=== PATIENT | female | born 1935 | race Caucasian/White ===

== ENCOUNTER 2017-03-08 19:18 | Inpatient (IN) | payer MEDICARE, BC ==
[~2017-03-08] VITALS: Ht 152.4 cm; Wt 50.0 kg
[~2017-03-08 19:18] MED LIST: ALLEGRA-D 1212 HOUR PO; AMITRIPTYLIN10 MG OR; AMITRIPTYLIN25 MG OR; AMLODIPINE BESY10 MG PO; AMLODIPINE5 MG PO; ANTIVERT PO; ANTIVERT25 MG PO; ASPIRIN LOW DOS81 M2 PO; AUGMENTIN500TAB PO; BUDESONID2 IN; CALCIUM 500/VITAMIN PO; CEPHALEXIN500 M1 PO; CLONIDINE0.1 MG PO; FIORICET OR; FLEXERIL PO; FLUARIX QUADRIV1 IN1 IM; FLUARIX QUADRIV1 INJ IM; FLULAVAL IM; FOSAMAX70 MG OR; GNP OMEPRAZOLE20 MG PO; HYDRALAZINE25 MG PO; IBUPROFEN600 MG PO; IPRATROPIU0.5 MG/3 M NEB; ISRADIPINE5 MG OR; ISRADIPINE5 MG PO; LANOXIN0.25 MG PO; LASIX 20 MG20 MG/TAB PO; LEVAQUIN750 MG PO; LEVOTHYROXIN125 MCG PO; LIMBITROL1 TAB PO; LISINOPRIL40 MG PO; LOPRESSOR50 M1 PO; LYRICA75 MG OR; MAGNESIUM-OX400 MG PO; MAGNESIUM250 M1 PO; MECLIZINE HCL25 MG PO; MECLIZINE25 MG PO; METOCLOPRAM5 MG PO; METOCLOPRAMIDE H5 MG PO; METOPROL TAR50 MG PO; METOPROLOL TART50 MG PO; MINIPRESS2 MG OR; MINIPRESS2 MG PO; OMEPRAZOLE20 MG PO; PERCOCET 5/325M1 TAB OR; PHENERGAN SUP12.5 MG PO; PRAZOSIN HCL2 MG OR; PREDNISONE5 MG PO; PRILOSEC20 MG PO; PROAIR HFA IN; PROCHLORPER10 MG PO; PROTONIX20 MG OR; PROTONIX20 MG PO; RESTORIL15 MG PO; RHINOCORT NEB; ROBITUSSIN AC10 ML PO; SYNTHROID100 MCG PO; SYNTHROID125 MCG PO; SYNTHROID75 MCG OR; TAM75CAP OR; ULTRAM50 M1 PO; VICODIN HP1 TA1 PO; XANAX0.5 MG OR; ZOFRAN ODT8 MG PO; ZPAK OR; [UNRECOGNIZED DRUG - OTHER] OR
[2017-03-08 20:09] LABS: HEMATOCRIT 36.2 % (37.0-47.0); HEMOGLOBIN 11.8 g/dl (12.0-16.0); IMMATURE GRANULOCYTES 0.3 % (0.0-1.0); MEAN CELL VOLUME 90.7 fL CALC (80.0-100.0); MEAN CORPUSCULAR HGB 29.6 pG CALC (26.0-32.0); MEAN CORPUSCULAR HGB CONC 32.6 g/L CALC (32.0-36.0); NEUT# 3.66 thou/uL (2.00-7.15); RED BLOOD COUNT 3.99 mill/uL (4.20-5.60); RED CELL DISTRI WIDTH 13.5 % (11.5-15.5)
[2017-03-08] MEDS ORDERED: BL MAGNESIUM250 MG PO (20:19)
[2017-03-08] MEDS ORDERED: VITAMIN D-31000 UNI1 PO (20:23)
[2017-03-08 20:25] LABS: ALBUMIN 4.1 g/dL (3.2-5.0); ALKALINE PHOSPHATASE 56 u/l (38-126); ANION GAP 13 (6-22 (CALC)); BILIRUBIN, TOTAL 0.7 mg/dL (0.0-1.4); BUN 11 mg/dL (8-23); BUN/CREATININE RATIO 21 (12-20 (CALC)); CALCIUM 9.3 mg/dL (8.4-10.2); CARBON DIOXIDE 31 mmol/l (22-30); CHLORIDE 93 mmol/l (95-108); CREATININE 0.5 mg/dL (0.5-1.0); GFR > 60 ML/MIN (>=60 (CALC)); GFR FOR AFR.AMER. > 60 ML/MIN (>=60 (CALC)); GLUCOSE 110 mg/dL (82-115); SGOT/AST 30 u/l (9-36); SGPT/ALT 18 u/l (11-66); SODIUM 133 mmol/l (137-146); TOTAL PROTEIN 7.6 g/dL (6.3-8.2)
[2017-03-08 20:26] LABS: ACT PARTIAL THROMBO TIME 24.7 SECONDS (20.0-32.5); INTERNATIONAL NORMALIZED RATIO 0.9 RATIO (0.7-1.3); PROTHROMBIN TIME 9.9 SECONDS (9.0-12.5)
[2017-03-08 20:37] LABS: MYOGLOBIN 30 ng/mL (0 - 62)
[2017-03-08 22:28] LABS: URINE BILIRUBIN - DIPSTICK NEGATIVE (NEGATIVE); URINE BLOOD DIPSTICK TRACE-INTACT (NEGATIVE); URINE CLARITY CLEAR; URINE COLOR YELLOW; URINE GLUCOSE - DIPSTICK NEGATIVE (NEGATIVE); URINE KETONE NEGATIVE (NEGATIVE); URINE LEUK ESTERASE NEGATIVE (NEGATIVE); URINE NITRITE - DIPSTICK NEGATIVE (Negative); URINE PH 6.5 (4.5-8.0); URINE PROTEIN - DIPSTICK NEGATIVE (NEG-TRACE); URINE SPECIFIC GRAVITY 1.015; URINE UROBILINOGEN - DIPSTICK 0.2 E.U./dL (0.2)
[2017-03-08 22:42] VITALS: BP 203/100
[2017-03-08 23:40] VITALS: BP 161/82
[2017-03-09 04:50] VITALS: BP 106/48; BP 143/70
[2017-03-09 06:02] LABS: HEMATOCRIT 35.4 % (37.0-47.0); HEMOGLOBIN 11.7 g/dl (12.0-16.0); IMMATURE GRANULOCYTES 0.3 % (0.0-1.0); MEAN CELL VOLUME 88.9 fL CALC (80.0-100.0); MEAN CORPUSCULAR HGB 29.4 pG CALC (26.0-32.0); MEAN CORPUSCULAR HGB CONC 33.1 g/L CALC (32.0-36.0); NEUT# 3.54 thou/uL (2.00-7.15); RED BLOOD COUNT 3.98 mill/uL (4.20-5.60); RED CELL DISTRI WIDTH 13.2 % (11.5-15.5)
[2017-03-09 06:20] LABS: ANION GAP 13 (6-22 (CALC)); BUN 9 mg/dL (8-23); BUN/CREATININE RATIO 17 (12-20 (CALC)); CALCIUM 9.4 mg/dL (8.4-10.2); CALCULATED LDLCHOLESTEROL 97 mg/dL (62-129 (CALC)); CARBON DIOXIDE 29 mmol/l (22-30); CHLORIDE 95 mmol/l (95-108); CREATININE 0.5 mg/dL (0.5-1.0); GFR > 60 ML/MIN (>=60 (CALC)); GFR FOR AFR.AMER. > 60 ML/MIN (>=60 (CALC)); GLUCOSE 83 mg/dL (82-115); HDL CHOLESTEROL 58 mg/dL (>=40); POTASSIUM 3.7 mmol/l (3.5-5.1); SODIUM 133 mmol/l (137-146); TOTAL CHOLESTEROL 171 mg/dl (0-199); TOTAL TRIGLYCERIDES 80 mg/dl (30-149); VLDL CHOLESTROL 16 mg/dl (0-48 (CALC))
[2017-03-09 08:00] VITALS: BP 142/74
[2017-03-09 11:06] VITALS: BP 151/80
[2017-03-09 15:54] VITALS: BP 136/79
[2017-03-09 18:55] VITALS: BP 135/87
[2017-03-09 23:32] VITALS: BP 142/80
[2017-03-10 03:59] VITALS: BP 133/80
[2017-03-10 08:09] VITALS: BP 134/64
[2017-03-10 10:50] VITALS: BP 119/73
[2017-03-10] MEDS ORDERED: ASPIRIN EC325 MG PO (10:50)
[2017-03-10] MEDS ORDERED: ATORVASTATIN CA40 MG PO (10:50)
== END 2017-03-10 13:42 | DRG 69 ==
LOC: ENPENDDIS → ED 19:18 → ED-I 22:09 → ED 22:12 → MS2 22:13 → UNDODEPER 03-09 22:35 → MS2 03-10 13:42
PROVIDERS: Emergency Medicine; ADMIT Internal Medicine; ATTEND Internal Medicine
DX: G45.9 Transient cerebral ischemic attack, unspecified (principal); J44.9 Chronic obstructive pulmonary disease, unspecified; D86.9 Sarcoidosis, unspecified; I10 Essential (primary) hypertension; R06.1 Stridor; E03.9 Hypothyroidism, unspecified; I25.10 Atherosclerotic heart disease of native coronary artery without angina pectoris
CPT/HCPCS: A9579; J1650

== ENCOUNTER 2019-01-16 22:18 | Emergency (ER) | payer MEDICARE, BC ==
[~2019-01-16] VITALS: Ht 152.4 cm; Wt 45.0 kg
[~2019-01-16 22:18] MED LIST changes: +ASPIRIN EC325 MG PO; +ATORVASTATIN CA40 MG PO; +BL MAGNESIUM250 MG PO; +VITAMIN D-31000 UNI1 PO
[2019-01-16 23:19] LABS: HEMATOCRIT 37.5 % (37.0-47.0); IMMATURE GRANULOCYTES 0.3 % (0.0-5.0); MEAN CELL VOLUME 91.7 fL CALC (80.0-100.0); MEAN CORPUSCULAR HGB 29.3 pG CALC (26.0-32.0); NEUT# 13.75 thou/uL (2.00-7.15); RED BLOOD COUNT 4.09 mill/uL (4.20-5.60)
[2019-01-16 23:29] LABS: ALBUMIN 4.2 g/dL (3.2-5.0); ALKALINE PHOSPHATASE 77 u/l (38-126); AMYLASE 52 u/l (30-110); ANION GAP 13 (6-22 (CALC)); BILIRUBIN, TOTAL 0.6 mg/dL (0.0-1.4); BUN 18 mg/dL (8-23); BUN/CREATININE RATIO 39 (12-20 (CALC)); CARBON DIOXIDE 30 mmol/l (22-30); CHLORIDE 96 mmol/l (95-108); CREATININE 0.5 mg/dL (0.5-1.0); GFR > 60 ML/MIN (>=60 (CALC)); GFR FOR AFR.AMER. > 60 ML/MIN (>=60 (CALC)); LIPASE 96 u/l (23-300); POTASSIUM 3.9 mmol/l (3.5-5.1); SGOT/AST 30 u/l (9-36); SODIUM 134 mmol/l (137-146); TOTAL PROTEIN 6.6 g/dL (6.3-8.2)
[2019-01-16 23:40] LABS: MYOGLOBIN 34 ng/mL (0 - 62)
[2019-01-17] MEDS ORDERED: ASPIRIN 81 LOW81 MG PO (00:06)
[2019-01-17] MEDS ORDERED: B-121000 MC1 PO (00:06)
[2019-01-17] MEDS ORDERED: CIPROFLOXACN500 MG PO (02:05)
[2019-01-17] MEDS ORDERED: ZOFRAN ODT4 MG PO (02:05)
[2019-01-17 04:05] VITALS: BP 131/58
== END 2019-01-17 04:10 | disposition home or self-care (01) ==
LOC: ED 22:18
PROVIDERS: Emergency Medicine
DX: K52.9 Noninfective gastroenteritis and colitis, unspecified (principal); R11.2 Nausea with vomiting, unspecified; R19.7 Diarrhea, unspecified; K44.9 Diaphragmatic hernia without obstruction or gangrene

== ENCOUNTER 2020-07-29 12:38 | Observation (INO) | payer MEDICARE, BC ==
[~2020-07-29] VITALS: Ht 152.4 cm; Wt 48.6 kg
[~2020-07-29 12:38] MED LIST changes: +ASPIRIN 81 LOW81 MG PO; +B-121000 MC1 PO; +CIPROFLOXACN500 MG PO; +ZOFRAN ODT4 MG PO
--- NOTE | 2020-07-29 12:41 | NUR ---
PATIENT TO ROOM VIA EMS AND PHYSICIAN AT BEDSIDE FOR EVAL
--- NOTE | 2020-07-29 13:10 | NUR ---
PT CONTIUNES TO MAKE INTERMITTENT STRIDOR SOUNDS WITH RESPIRATIONS. PT STATES IT IS "BECAUSE I HAD SARCOIDOSIS YEARS AGO". VERIFIED WITH RETIREMENT STAFF THAT THIS RESPIRATIONS IS PTS BASELINE. PT DOESNT APPEAR IN ANY DISTRESS. PT O2 SAT 98% ON O2@2LPM VIA NC. PT O2 DEPENDENT AT RETIREMENT
[2020-07-29] MEDS ORDERED: LIPITOR20 MG PO (13:39)
[2020-07-29] MEDS ORDERED: BROVANA15 MCG/2 M IN (13:40)
[2020-07-29] MEDS ORDERED: OMEPRAZOLE20 MG PO (13:42)
[2020-07-29] MEDS ORDERED: PRESERVISION PO (13:43)
[2020-07-29] MEDS ORDERED: SYSTANE OU (13:43)
[2020-07-29 13:58] LABS: MEAN CELL VOLUME 94.5 fL CALC (80.0-100.0); MEAN CORPUSCULAR HGB 28.9 pG CALC (26.0-32.0); MEAN CORPUSCULAR HGB CONC 30.6 g/dL CAL (32.0-36.0); NEUT# 3.39 thou/uL (2.00-7.15); RED BLOOD COUNT 3.25 mill/uL (4.20-5.60); RED CELL DISTRI WIDTH 13.3 % (11.5-15.5)
[2020-07-29 13:59] LABS: HEMATOCRIT 30.7 % (37.0-47.0); HEMOGLOBIN 9.4 g/dl (12.0-16.0)
--- NOTE | 2020-07-29 14:10 | NUR ---
ATTEMPTED ORTHOSTATIC VS, PT COULD NOT TOLERATE COMING TO STANDING POSITION,EDP AWARE AND MEDS ORDERED FOR LB PAIN
[2020-07-29 14:18] LABS: ANION GAP 11 (6-22 (CALC)); BUN 15 mg/dL (8-23); BUN/CREATININE RATIO 38 (12-20 (CALC)); CARBON DIOXIDE 33 mmol/l (22-30); CHLORIDE 87 mmol/l (95-108); CREATININE 0.4 mg/dL (0.5-1.0); GFR > 60 ML/MIN (>=60 (CALC)); GFR FOR AFR.AMER. > 60 ML/MIN (>=60 (CALC)); POTASSIUM 3.8 mmol/l (3.5-5.1)
[2020-07-29 14:19] LABS: SODIUM 127 mmol/l (137-146)
--- NOTE | 2020-07-29 15:00 | NUR ---
ADMINISTERED MEDS FOR 6/10 LB PAIN. INITIATED IVF
--- NOTE | 2020-07-29 15:35 | NUR ---
REPORT REC FROM ANAMARIA DEL ROSARIO
--- NOTE | 2020-07-29 15:40 | NUR ---
CALLED REPORT TO MIGUEL ÁNGEL HERNANDEZ
--- NOTE | 2020-07-29 16:00 | NUR ---
PT TRANSPORTED TO [place] VIA STRETCHER ALERT AND CONVERSIVE IN NO OVERT DISTRESS. PT STATES "THAT PAIN MEDICINE DID HELP". LOW BACK PAIN 02/20
--- NOTE | 2020-07-29 16:02 | NUR ---
PT ARRVIED VIA STRETCHER WITH O2 VIA NC @ 2L ACCOMPANIED BY ANAMARIA DEL ROSARIO. NO DISTRESS NOTED. SON AT BEDSIDE. AUDIBLE STRIDOR HEARD, PER PT AND FAMILY MEMBER THIS IS CHRONIC DUE TO HER MEDICAL CONDITION OF SARCOIDOSIS, LUNGS CLEAR OTHERWISE. PT O2 DEPENDENT AT THE [place]. PT A&O X3. 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 PT C/O OF LOWER BACK PAIN 06/22, STATES MORPHINE HELPED HER ALLEVIATE SOME OF THE PAIN BUT FOR ONLY A SHORT AMOUNT OF TIME. BP TO BE REASSESSED DUE TO IT BEING ELEVATED. ORIENTED PT TO ROOM. CHIQUI ROWAN OFFERED BUT DECLINED. ASSESSMENT COMPLETED. DISCUSSED POC WIH BOTH PT AND SON, BOTH VERBALIZED UNDERSTANDING. CALL LIGHT IN REACH. CONTINUE TO MONITOR.
[2020-07-29 16:09] VITALS: BP 168/69
--- NOTE | 2020-07-29 16:12 | NUR ---
CALLED REPORT TO NICOLAS AT [facility]
[2020-07-29 16:25] VITALS: BP 172/82
--- NOTE | 2020-07-29 18:15 | NUR ---
PT STATES PAIN IS A LOT BETTER AFTER ADMINISTRATION OF MORPHINE RATES PAIN IS TRENDING DOWNWARD TO A 6/10
[2020-07-29 18:30] VITALS: BP 149/77
--- NOTE | 2020-07-29 20:01 | NUR ---
ASSESSMENT AND VITALS COMPLETED AT THIS TIME. RESPIRATIONS ARE SHALLOW, PT HAS A LOUD HIGH PITCH WHILE BREATHING. NO SIGNS OF DISTRESS, O2 SAT 100% ON 2L NC. HEART RHYTHM IS NORMAL WITH TELE IN PLACE. BOWEL SOUNDS ARE ACTIVE IN ALL QUADRANTS, LAST REPORTED BM 07/29/20. RADIAL AND PEDAL PULSES ARE STRONG WITH NORMAL CAPILLARY REFILL. SKIN IS INTACT. PT IS USING THE BSC WITH 1 ASSIST. PT DENIES ANY PAIN OR ADDITIONAL NEEDS AT THIS TIME. ALL SAFETY PRECAUTIONS ARE IN PLACE WITH CALL LIGHT IN REACH. WILL CONTINUE TO MONITOR.
[2020-07-29 21:36] LABS: URINE BILIRUBIN - DIPSTICK NEGATIVE (NEGATIVE); URINE BLOOD DIPSTICK SMALL (NEGATIVE); URINE COLOR YELLOW; URINE GLUCOSE - DIPSTICK NEGATIVE (NEGATIVE); URINE KETONE 40 mg/dL (NEGATIVE); URINE LEUK ESTERASE NEGATIVE (NEGATIVE); URINE NITRITE - DIPSTICK NEGATIVE (Negative); URINE PH 7.5 (4.5-8.0); URINE PROTEIN - DIPSTICK 100 mg/dL (NEG-TRACE); URINE UROBILINOGEN - DIPSTICK 0.2 E.U./dL (0.2)
[2020-07-29 21:50] LABS: URINE SQUAMOUS EPITHELIAL CELL FEW EPI/hpf (0-FEW)
--- NOTE | 2020-07-29 22:03 | NUR ---
PT HOME MED "BROVANA" IS NOT AVAILABLE TO BE GIVEN FOR 2100 DOSE. DAY NURSE AND PT REPORTS THAT HER SON IS GOING TO ATTEMPT TO BRING IT IN TOMORROW FOR HER. PHYSICIAN NOTIFIED THAT MEDICATION NOT AVAILABLE FOR ADMINISTRATION. WILL AWAIT ANY NEW ORDERS.
--- NOTE | 2020-07-29 22:30 | NUR ---
PT FOUND BY VESSEL ENGINEER REPORTED THAT PT WAS SEEN BLEEDING FROM ARM, UPON MY ENTERING ROOM, VESSEL ENGINEER WAS VISUALIZED HOLDING PT ARM WITH TOWEL AND BLOOD ON BLANKETS AND GOWN. IV CANULA INTACT AND ON FLOOR, PT DENIES KNOWING WHAT HAPPENED. PT CLEANED OF BLOOD ON ARM, NEW GOWN AND BEDDING PROVIDED. ARM WRAPPED WITH GAUZE AND KOBAN. [facility].
[2020-07-29 23:40] VITALS: BP 156/82
[2020-07-30] VITALS (9 sets, daily range): BP systolic 150–178; BP diastolic 65–90
--- NOTE | 2020-07-30 00:01 | NUR ---
PT CONTINUES BEFORE, RESTING IN BED IN NO ACUTE DISTRESS. IV INFUSING; IV SITE IN HEALTHY WITH NO REDDNESS OR SWELLING. WILL CONTINUE TO OBSERVE.
[2020-07-30 05:15] LABS: HEMATOCRIT 27.7 % (37.0-47.0); HEMOGLOBIN 8.5 g/dl (12.0-16.0); IMMATURE GRANULOCYTES 0.7 % (0.0-5.0); MEAN CELL VOLUME 95.2 fL CALC (80.0-100.0); MEAN CORPUSCULAR HGB 29.2 pG CALC (26.0-32.0); MEAN CORPUSCULAR HGB CONC 30.7 g/dL CAL (32.0-36.0); NEUT# 2.77 thou/uL (2.00-7.15); RED BLOOD COUNT 2.91 mill/uL (4.20-5.60); RED CELL DISTRI WIDTH 13.4 % (11.5-15.5)
--- NOTE | 2020-07-30 05:25 | NUR ---
ORTHOSTATIC BP'S OBTAINED: 169/79 SUPPINE, 155/77 SITTING, 158/65 STANDING. PT DENIED DIZZINESS OR SOB. PT APPEARED TO TOLERATE WELL. PT MEDICATED ORDERS PROVIDE AND IVF REPLENISHED AT THIS TIME.
[2020-07-30 05:26] LABS: ALKALINE PHOSPHATASE 55 u/l (38-126); ANION GAP 8 (6-22 (CALC)); BILIRUBIN, TOTAL 0.6 mg/dL (0.0-1.4); BUN 12 mg/dL (8-23); BUN/CREATININE RATIO 36 (12-20 (CALC)); CARBON DIOXIDE 33 mmol/l (22-30); CHLORIDE 91 mmol/l (95-108); CREATININE 0.3 mg/dL (0.5-1.0); GFR > 60 ML/MIN (>=60 (CALC)); GFR FOR AFR.AMER. > 60 ML/MIN (>=60 (CALC)); POTASSIUM 3.8 mmol/l (3.5-5.1); SGOT/AST 23 u/l (9-36); SODIUM 127 mmol/l (137-146); TOTAL PROTEIN 5.3 g/dL (6.3-8.2)
[2020-07-30 05:27] LABS: ALBUMIN 3.1 g/dL (3.2-5.0)
--- NOTE | 2020-07-30 08:20 | NUR ---
DR LUQUE AT BEDSIDE DISCUSSING POC
--- NOTE | 2020-07-30 08:47 | NUR ---
PULMICORT NEB TX NOT GIVEN DUE TO PENDING LAB RESULTS.
--- NOTE | 2020-07-30 09:11 | NUR ---
PT SITTING IN BED. A&O X3. GRANDAUGHTER AT BEDSIDE. NO DISTRESS NOTED. O2 VIA NC @ 2L IN PLACE. PT REPORTS PAIN TO BE MINIMAL AT THIS TIME. PT ABLE TO USE BEDSIDE COMMODE X1 ASSIST. ADJUSTED PILLOWS FOR LOWER BACK PAIN COMFORT. NO OTHER NEEDS AT THIS TIME. ASSESSMENT COMPLETED. DISCUSSED POC. CALL LIGHT IN REACH. CONTINUE TO MONITOR.
--- NOTE | 2020-07-30 10:10 | NUR ---
PT C/O OF PAIN 04/22. LORTAB GIVEN. WILL REASSESS.
--- NOTE | 2020-07-30 10:30 | NUR ---
PT C/O OF SLIGHT FINGER TINGLING KATHLEEN BANDAGE REMOVE WHERE IV SITE IS IN PLACE. PT REPORTS SLIGHT RELIEF. EXPRESSES CONCERN OVER RING FINGER ON RT HAND BEING BRUISED AT FINGER TIP. ERIKA HENRY NOTIFIED, AT BEDSIDE EXAMINING FINGER. ENCOURAGED PT TO CALL IF TINGLING SENSATION CONTINUES TO OCCUR. PT VERBALIZED UNDERSTANDING. CALL LIGHT IN REACH. CONTINUE TO MONITOR.
--- NOTE | 2020-07-30 11:34 | NUR ---
SON AT BEDSIDE. PT SLEEPING. AWAKNED TO GIVE 1X DOSE OF CLONIDINE. PT UNABLE TO RECOGNIZE PTS SON. PT HAVING GARBLED/SLURRED SPEECH BUT ABLE TO FOLLOW COMMANDS. SURJIT HENRY NOTIFIED. AT BEDSIDE EVALUATING PT, AT TIME OF EVALUATION, PT SPEAKING CLEAR AND WAS ABLE TO RECOGNIZE SON.
--- NOTE | 2020-07-30 12:40 | NUR ---
PT SLEEPING IN BED. NO DISTRESS NOTED. CONTINUE TO MONITOR.
--- NOTE | 2020-07-30 12:45 | NUR ---
PT NOTICED TO BE HAVING ANOTHER EPISODE OF CHANGE IN SPEECH. ELIZABETH HENRY NOTIFIED. Rehan MADISON AT BEDSIDE EVAULATING PT. PT ABLE TO FOLLOW COMMANDS. SPEECH CLEAR UPON EVALUATION BY ASPHALT PAVER OPERATOR. CONTINUE TO MONITOR.
--- NOTE | 2020-07-30 15:20 | NUR ---
RUSSELL GROUND SUPPORT EQUIPMENT FITTER NOTIFIED OF SIMILAR SYMPTOMS THAT WERE OBSERVED EARLIER. RUSSELL AT BEDSIDE RE-EVALUATING PT. CONTINUE TO MONITOR PT.
--- NOTE | 2020-07-30 17:10 | NUR ---
PT ASSESSED BY THIS CERAMIC WORKER AND MOE RN. PT CONTINUED TO HAVE INTERMITTENT EPISODES OF SLIGHT GARBLED/SLURRED SPEECH, PT UNABLE TO CORRECTLY EXPRESS WHAT SHE NEEDS. DR SAEED NOTIFIED. GREG SAEED CONTINUE TO MONITOR.
--- NOTE | 2020-07-30 19:10 | NUR ---
REPORT TAKEN FROM COLLETTE DEL ROSARIO. ASSESSMENT AND VITALS COMPLETED AT THIS TIME. RESPIRATIONS ARE SHALLOW, PT HAS A LOUD HIGH PITCH WHILE BREATHING. NO SIGNS OF DISTRESS, O2 SAT 100% ON 2L NC. HEART RHYTHM IS NORMAL WITH TELE IN PLACE. BOWEL SOUNDS ARE ACTIVE IN ALL QUADRANTS. RADIAL AND PEDAL PULSES ARE STRONG WITH NORMAL CAPILLARY REFILL. SKIN IS INTACT. PT IS USING THE BSC WITH 1 ASSIST. PT DENIES ANY PAIN OR ADDITIONAL NEEDS AT THIS TIME. ALL SAFETY PRECAUTIONS ARE IN PLACE WITH CALL LIGHT IN REACH. WILL CONTINUE TO MONITOR.
--- NOTE | 2020-07-30 19:25 | NUR ---
[facility] LR CALLED AND ASKED ABOUT THE PTS NEURO BASELINE. NURSES REPORT THAT PT IS NORMALLY A&O WITH NO APPARENT CHANGE IN SPEECH. REPORT GIVEN TO FANG DEL ROSARIO. UPDATED ON PTS CONDITION.
--- NOTE | 2020-07-30 19:27 | NUR ---
DAY NURSE WITNESSED CALLING ASSISTED FOR BASELINE INFORMATION ON PT. PER DAY NURSE, PT BASELINE IS LOC W/CLEAR SPEECH.
--- NOTE | 2020-07-30 19:47 | NUR ---
PT C/O 04/22 PAIN. LORTAB GIVEN. WILL REASSESS.
--- NOTE | 2020-07-30 19:47 | NUR ---
PHYSICIAN NOTIFIED OF GARBLED UNINTELLIGIBLE SPEECH. ORDERS FOR ERNESTO ASSESSMENT AND TO BE NOTIFIED OF SCORE RESULTS OF 7. PHYSICIAN NOTIFIED.
--- NOTE | 2020-07-30 20:10 | NUR ---
STROKE ALERT CALLED PER PHYSICIAN ORDERS
--- NOTE | 2020-07-30 21:10 | NUR ---
PT TAKEN TO CT FOR SCAN W/OUT CONTRAST. NEUROTELE PHYSICIAN ONLINE TO ASSESS PT AT THAT TIME AND CT SCAN REVIEWED/DR. GASTELUM ASSESSMENT COMPLETED @2049. ORDERS FOR PT TO REMAIN ON ASPIRIN 81MG ORDERS ALREADY PROVIDE AND FOR FOLLOW-UP MRI.
--- NOTE | 2020-07-30 23:13 | NUR ---
PER GIANNI FROM RESPIRATORY REPORT THAT SCHEDULED PULMICORT HAS BEEN HELD UNTIL PTS PENDING COVID RESULTS ARE NEGATIVE.
[2020-07-31] VITALS: BP 139/65
--- NOTE | 2020-07-31 00:39 | NUR ---
ASSISTED PT UP TO BSC AND BACK TO BED. ASSESSMENT COMPLETED, NEURO'S ARE INTACT, EXCEPT PT HAVING DIFFICULTY WITH SENTENCES. SHE CAN ANSWER NO AND YES APPROPRIATLEY, BUT WHEN ATTEMPTING TO TELL ME SHE NEEDED TO GET UP TO BSC SHE APPEARED TO SPEAK IN JUMBLED UNINTELLIGIBLE WORDS. I HAD TO GUES AT HER MOTIONS TO DETECT WHAT HER NEEDS WERE, BUT WHEN ASKED IF SHE IS COLD SHE REPLIES, "YES" WHEN ASKED IF SHE IS IN PAIN SHE REPLIES "NO." WILL CONTINUE TO MONITOR.
--- NOTE | 2020-07-31 01:50 | NUR ---
PT SLEEPING, NO S/O DISTRESS NOTED AT THIS TIME. CALL LIGHT AT SIDE.
[2020-07-31 04:00] VITALS: BP 134/68
[2020-07-31 05:30] LABS: HEMATOCRIT 24.7 % (37.0-47.0); HEMOGLOBIN 7.7 g/dl (12.0-16.0); MEAN CELL VOLUME 94.3 fL CALC (80.0-100.0); MEAN CORPUSCULAR HGB 29.4 pG CALC (26.0-32.0); MEAN CORPUSCULAR HGB CONC 31.2 g/dL CAL (32.0-36.0); RED BLOOD COUNT 2.62 mill/uL (4.20-5.60); RED CELL DISTRI WIDTH 13.6 % (11.5-15.5)
--- NOTE | 2020-07-31 06:07 | NUR ---
PT MEDICATED ORDERS PROVIDE BY MIGUEL ÁNGEL PLEITEZ. SWITCHBOARD OPERATOR SUPERVISOR IN WITH PT ALSO AT THIS TIME. PT COMMUNICATING CLEARLY WITH SEVERAL WORD SENTENCES. NO S/O DISTRESS NOTED AT THIS TIME.
[2020-07-31 06:23] LABS: ALBUMIN 2.5 g/dL (3.2-5.0); ALKALINE PHOSPHATASE 48 u/l (38-126); ANION GAP 10 (6-22 (CALC)); BILIRUBIN, TOTAL 0.5 mg/dL (0.0-1.4); BUN 12 mg/dL (8-23); BUN/CREATININE RATIO 31 (12-20 (CALC)); CHLORIDE 96 mmol/l (95-108); CREATININE 0.4 mg/dL (0.5-1.0); GFR > 60 ML/MIN (>=60 (CALC)); GFR FOR AFR.AMER. > 60 ML/MIN (>=60 (CALC)); POTASSIUM 3.2 mmol/l (3.5-5.1); SGOT/AST 19 u/l (9-36); SODIUM 129 mmol/l (137-146); TOTAL PROTEIN 4.5 g/dL (6.3-8.2)
[2020-07-31 06:24] LABS: CARBON DIOXIDE 26 mmol/l (22-30)
[2020-07-31 08:00] VITALS: BP 169/69
--- NOTE | 2020-07-31 09:00 | NUR ---
PT SEEN AWAKE, ALERT, ORIENTED X 3 AT THIS TIME. BREATHING IS LOUD PER SARCOIDOSIS, BUT LUNG SOUNDS ARE CLEAR, USING 3 LPM NC. PT NAUSEATED, WAS PROVIDED ZOFRAN FOR SAME. PT TAKEN TO MRI FOR HEAD SCAN, COULD NOT BE DONE PER VOMITING. PT PROVIDED COMPAZINE FOR NAUSEA, WAS LATER ABLE TO TAKE HER MORNING MEDS WITHOUT NAUSEA. PT AWARE OF RESCHEDULED MRI FOR THIS AFTERNOON.
[2020-07-31 12:00] VITALS: BP 128/63
--- NOTE | 2020-07-31 13:20 | NUR ---
PT SEEN AT REST IN THE BED, EYES CLOSED, SNORING HEARD. PT TO HAVE MRI SOON.
--- NOTE | 2020-07-31 16:39 | NUR ---
PT CONTNUES TO DOZE OFF AND ON TODAY. PT STATES THAT HER NAUSEA FROM EARLIER HAS NEARLY GONE. NO DISTRESS, NO COMPLAINTS HEARD.
[2020-07-31 16:46] VITALS: BP 164/75
[2020-07-31 18:30] VITALS: BP 148/77
--- NOTE | 2020-07-31 20:00 | NUR ---
PT RESTING IN BED WITH EYES CLOSED EASILY AROUSED. RESPIRATIONS EVEN AND UNLABORED. O2 @ 2L VIA NC. PEDAL PULSES ARE STRONG. PT DENIES ANY PAIN OR DISCOMFORT AT THIS TIME. SAFETY PRECAUTIONS IN PLACE.WILL CONTINUE TO MONITOR.
[2020-08-01] VITALS: BP 154/82
--- NOTE | 2020-08-01 00:10 | NUR ---
PT RESTING IN BED WITH EYES CLOSED. NO S/S OF DISTRESS AT THIS TIME. SAFETY PRECAUTIONS IN PLACE. WILL CONTINUE TO MONITOR.
[2020-08-01 03:30] VITALS: BP 166/75
[2020-08-01 04:50] LABS: ALBUMIN 2.8 g/dL (3.2-5.0); ALKALINE PHOSPHATASE 50 u/l (38-126); ANION GAP 8 (6-22 (CALC)); BILIRUBIN, TOTAL 0.6 mg/dL (0.0-1.4); BUN 15 mg/dL (8-23); BUN/CREATININE RATIO 39 (12-20 (CALC)); CARBON DIOXIDE 29 mmol/l (22-30); CHLORIDE 97 mmol/l (95-108); CREATININE 0.4 mg/dL (0.5-1.0); GFR > 60 ML/MIN (>=60 (CALC)); GFR FOR AFR.AMER. > 60 ML/MIN (>=60 (CALC)); POTASSIUM 3.7 mmol/l (3.5-5.1); SGOT/AST 22 u/l (9-36); SODIUM 130 mmol/l (137-146); TOTAL PROTEIN 4.9 g/dL (6.3-8.2)
[2020-08-01 05:11] LABS: HEMATOCRIT 25.6 % (37.0-47.0); HEMOGLOBIN 7.8 g/dl (12.0-16.0); MEAN CELL VOLUME 94.5 fL CALC (80.0-100.0); MEAN CORPUSCULAR HGB 28.8 pG CALC (26.0-32.0); MEAN CORPUSCULAR HGB CONC 30.5 g/dL CAL (32.0-36.0); RED BLOOD COUNT 2.71 mill/uL (4.20-5.60)
--- NOTE | 2020-08-01 07:08 | NUR ---
REPORT REC FROM ALONSO DEL ROSARIO. PT SLEEPING AT THIS TIME. RESP EVEN AND UNLABORED. O2 VIA NC IN PLACE. CONTINUE TO MONIOR
--- NOTE | 2020-08-01 07:49 | NUR ---
ASSISTED THE PT TO BSC. PT STEADY DURING AMBULATION. PT REPORTS NOT BEING ABLE TO SLEEP LAST NIGHT. ENCOURAGED PT TO EAT BREAKFAST, PT VERBALIZED UNDERSTANDING.
[2020-08-01 08:06] VITALS: BP 140/70
--- NOTE | 2020-08-01 08:06 | NUR ---
PT SITTING IN BED. A&O X3. NO DISTRESS NOTED. PT MORE AWAKE, WITH CLEAR SPEECH THIS MORNING. PT ABLE TO TAKE PO MEDICATIONS WITH NO DIFFICULTY. PT DENIES ANY PAIN AT THIS TIME. ASSESSMENT COMPLETED. DISCUSSED POC. CALL LORRI IN REACH. CONTINUE TO MONITOR.
[2020-08-01 10:45] VITALS: BP 152/86
[2020-08-01] MEDS ORDERED: SENNA-PLUS1 TAB PO (12:35)
[2020-08-01] MEDS ORDERED: TYLENOL500 MG PO (12:36)
--- NOTE | 2020-08-01 13:40 | NUR ---
D/C INSTRUCTIONS GIVEN TO PT. PT VERBALIZED UNDERSTANDING. IV INTACT UPON REMOVAL
--- NOTE | 2020-08-01 14:00 | NUR ---
Discharge instructions given. Patient verbalizes understanding of same. Discharged in stable condition via wheelchair to [facility] with facility transportation. All belongings sent with pt.
== END 2020-08-01 14:00 ==
LOC: ED 12:38 → ED-I 13:50 → ED 15:02 → MS2 15:03
PROVIDERS: Family Medicine; Nurse Practitioner; Nurse Practitioner Family; ADMIT Internal Medicine; ATTEND Internal Medicine
DX: S32.010A Wedge compression fracture of first lumbar vertebra, initial encounter for closed fracture (principal); S32.030A Wedge compression fracture of third lumbar vertebra, initial encounter for closed fracture; E87.1 Hypo-osmolality and hyponatremia; R41.0 Disorientation, unspecified; R47.81 Slurred speech; R53.1 Weakness; J44.9 Chronic obstructive pulmonary disease, unspecified; I10 Essential (primary) hypertension; F03.90 Unspecified dementia, unspecified severity, without behavioral disturbance, psychotic disturbance, mood disturbance, and anxiety; I42.9 Cardiomyopathy, unspecified; D64.9 Anemia, unspecified; J38.00 Paralysis of vocal cords and larynx, unspecified; W18.30XA Fall on same level, unspecified, initial encounter; Y92.099 Unspecified place in other non-institutional residence as the place of occurrence of the external cause; Z96.641 Presence of right artificial hip joint; Z20.828 Contact with and (suspected) exposure to other viral communicable diseases
CPT/HCPCS: A9579; G0378; J1650

== ENCOUNTER 2020-12-25 11:07 | Emergency (ER) | payer MEDICARE, BC ==
[~2020-12-25] VITALS: Ht 152.4 cm; Wt 49.0 kg
[~2020-12-25 11:07] MED LIST changes: +BROVANA15 MCG/2 M IN; +LIPITOR20 MG PO; +PRESERVISION PO; +SENNA-PLUS1 TAB PO; +SYSTANE OU; +TYLENOL500 MG PO
[2020-12-25] MEDS ORDERED: LIDOCAINE PATCH 55 % TD (11:49)
[2020-12-25 12:22] LABS: HEMATOCRIT 30.7 % (37.0-47.0); HEMOGLOBIN 9.7 g/dl (12.0-16.0); IMMATURE GRANULOCYTES 0.5 % (0.0-5.0); MEAN CORPUSCULAR HGB 28.4 pG CALC (26.0-32.0); MEAN CORPUSCULAR HGB CONC 31.6 g/dL CAL (32.0-36.0); NEUT# 3.67 thou/uL (2.00-7.15); RED BLOOD COUNT 3.41 mill/uL (4.20-5.60); RED CELL DISTRI WIDTH 13.2 % (11.5-15.5)
[2020-12-25 12:44] LABS: URINE BILIRUBIN - DIPSTICK NEGATIVE (NEGATIVE); URINE BLOOD DIPSTICK NEGATIVE (NEGATIVE); URINE COLOR YELLOW; URINE GLUCOSE - DIPSTICK NEGATIVE (NEGATIVE); URINE KETONE >=80 mg/dL (NEGATIVE); URINE LEUK ESTERASE NEGATIVE (NEGATIVE); URINE NITRITE - DIPSTICK NEGATIVE (Negative); URINE PROTEIN - DIPSTICK 100 mg/dL (NEG-TRACE); URINE SPECIFIC GRAVITY 1.025; URINE UROBILINOGEN - DIPSTICK 0.2 E.U./dL (0.2)
[2020-12-25 12:45] LABS: ALKALINE PHOSPHATASE 70 u/l (38-126); BILIRUBIN, TOTAL 0.5 mg/dL (0.0-1.4); BUN 24 mg/dL (8-23); BUN/CREATININE RATIO 54 (12-20 (CALC)); CARBON DIOXIDE 32 mmol/l (22-30); CHLORIDE 87 mmol/l (95-108); CREATININE 0.4 mg/dL (0.5-1.0); GFR > 60 ML/MIN (>=60 (CALC)); GFR FOR AFR.AMER. > 60 ML/MIN (>=60 (CALC)); LIPASE 82 u/l (23-300); MAGNESIUM 1.9 mg/dL (1.6-2.3); SGOT/AST 22 u/l (9-36); SODIUM 126 mmol/l (137-146)
[2020-12-25 12:51] LABS: URINE EPITHELIAL CELLS MODERATE EPI/hpf (0-FEW); URINE MUCUS MODERATE hpf (NONE-FEW)
[2020-12-25 12:54] LABS: ALBUMIN 3.7 g/dL (3.2-5.0); ANION GAP 10 (6-22 (CALC)); POTASSIUM 2.9 mmol/l (3.5-5.1); TOTAL PROTEIN 6.3 g/dL (6.3-8.2)
[2020-12-25 14:27] VITALS: BP 197/94
== END 2020-12-25 14:28 | disposition short-term general hospital (02) ==
LOC: ED 11:07
DX: I62.9 Nontraumatic intracranial hemorrhage, unspecified (principal); E87.1 Hypo-osmolality and hyponatremia; E87.6 Hypokalemia; I10 Essential (primary) hypertension; J44.9 Chronic obstructive pulmonary disease, unspecified; I42.9 Cardiomyopathy, unspecified; F03.90 Unspecified dementia, unspecified severity, without behavioral disturbance, psychotic disturbance, mood disturbance, and anxiety; K21.9 Gastro-esophageal reflux disease without esophagitis; Z20.822 Contact with and (suspected) exposure to COVID-19

== ENCOUNTER 2021-03-09 19:03 | Emergency (ER) | payer MEDICARE, BC ==
[~2021-03-09 19:03] MED LIST changes: +AMLODIPINE BESYL5 MG PO; +LIDOCAINE PATCH 55 % TD; +LISINOPRIL20 MG PO; +MEDDOSEPAK PO; +ZITHROMAX Z-PA250 MG PO
== END 2021-03-09 19:58 ==
LOC: ED 19:03
PROC: 0HQDXZZ Repair Right Lower Arm Skin, External Approach (ICD-10-PCS; principal; 2021-03-09)
DX: S51.811A Laceration without foreign body of right forearm, initial encounter (principal); J44.9 Chronic obstructive pulmonary disease, unspecified; K21.9 Gastro-esophageal reflux disease without esophagitis; F03.90 Unspecified dementia, unspecified severity, without behavioral disturbance, psychotic disturbance, mood disturbance, and anxiety; I42.9 Cardiomyopathy, unspecified; W22.8XXA Striking against or struck by other objects, initial encounter; Y92.099 Unspecified place in other non-institutional residence as the place of occurrence of the external cause

== ENCOUNTER 2021-04-26 14:56 | Emergency (ER) | payer MEDICARE, BC ==
[~2021-04-26] VITALS: Ht 152.4 cm; Wt 38.0 kg
[2021-04-26 16:36] VITALS: BP 147/71
== END 2021-04-26 16:45 | disposition home or self-care (01) ==
LOC: ED 14:56
PROC: 0HQKXZZ Repair Right Lower Leg Skin, External Approach (ICD-10-PCS; principal; 2021-04-26)
DX: S81.811A Laceration without foreign body, right lower leg, initial encounter (principal); J44.9 Chronic obstructive pulmonary disease, unspecified; K21.9 Gastro-esophageal reflux disease without esophagitis; F03.90 Unspecified dementia, unspecified severity, without behavioral disturbance, psychotic disturbance, mood disturbance, and anxiety; I42.9 Cardiomyopathy, unspecified; D86.9 Sarcoidosis, unspecified; W18.30XA Fall on same level, unspecified, initial encounter; Y92.099 Unspecified place in other non-institutional residence as the place of occurrence of the external cause

== ENCOUNTER 2021-06-21 09:32 | Emergency (ER) | payer MEDICARE, BC ==
[2021-06-21 10:48] LABS: HEMATOCRIT 28.9 % (37.0-47.0); HEMOGLOBIN 8.5 g/dl (12.0-16.0); IMMATURE GRANULOCYTES 0.4 % (0.0-5.0); MEAN CELL VOLUME 97.3 fL CALC (80.0-100.0); MEAN CORPUSCULAR HGB 28.6 pG CALC (26.0-32.0); MEAN CORPUSCULAR HGB CONC 29.4 g/dL CAL (32.0-36.0); NEUT# 3.17 thou/uL (2.00-7.15); RED BLOOD COUNT 2.97 mill/uL (4.20-5.60); RED CELL DISTRI WIDTH 15.3 % (11.5-15.5)
[2021-06-21 11:10] LABS: ALKALINE PHOSPHATASE 46 u/l (38-126); ANION GAP 7 (6-22 (CALC)); BUN 20 mg/dL (8-23); BUN/CREATININE RATIO 53 (12-20 (CALC)); CARBON DIOXIDE 37 mmol/l (22-30); CHLORIDE 93 mmol/l (95-108); CREATININE 0.4 mg/dL (0.5-1.0); GFR > 60 ML/MIN (>=60 (CALC)); GFR FOR AFR.AMER. > 60 ML/MIN (>=60 (CALC)); POTASSIUM 4.6 mmol/l (3.5-5.1); SGOT/AST 26 u/l (9-36); SODIUM 132 mmol/l (137-146); TOTAL PROTEIN 5.4 g/dL (6.3-8.2)
[2021-06-21 12:08] VITALS: BP 140/66
== END 2021-06-21 12:11 | disposition home or self-care (01) ==
LOC: ED 09:32
PROVIDERS: Family Medicine
DX: S30.0XXA Contusion of lower back and pelvis, initial encounter (principal); R20.0 Anesthesia of skin; R20.2 Paresthesia of skin; R27.0 Ataxia, unspecified; I10 Essential (primary) hypertension; E78.5 Hyperlipidemia, unspecified; E03.9 Hypothyroidism, unspecified; J44.9 Chronic obstructive pulmonary disease, unspecified; K21.9 Gastro-esophageal reflux disease without esophagitis; F03.90 Unspecified dementia, unspecified severity, without behavioral disturbance, psychotic disturbance, mood disturbance, and anxiety; I42.9 Cardiomyopathy, unspecified; W05.0XXA Fall from non-moving wheelchair, initial encounter; Y92.129 Unspecified place in nursing home as the place of occurrence of the external cause

== ENCOUNTER 2021-07-02 13:13 | Emergency (ER) | payer MEDICARE, BC ==
[~2021-07-02] VITALS: Ht 152.4 cm; Wt 40.0 kg
[2021-07-02 18:50] VITALS: BP 129/81
== END 2021-07-02 18:50 ==
LOC: ED 13:13
DX: R07.81 Pleurodynia (principal); R20.0 Anesthesia of skin; J44.9 Chronic obstructive pulmonary disease, unspecified; F03.90 Unspecified dementia, unspecified severity, without behavioral disturbance, psychotic disturbance, mood disturbance, and anxiety; I42.9 Cardiomyopathy, unspecified; K21.9 Gastro-esophageal reflux disease without esophagitis; W07.XXXA Fall from chair, initial encounter; Y92.099 Unspecified place in other non-institutional residence as the place of occurrence of the external cause; Z99.81 Dependence on supplemental oxygen; Z20.822 Contact with and (suspected) exposure to COVID-19

== ENCOUNTER 2021-08-07 01:53 | Emergency (ER) | payer MEDICARE, BC ==
[~2021-08-07] VITALS: Ht 152.4 cm; Wt 53.0 kg
[2021-08-07] MEDS ORDERED: GABAPENTIN100 MG PO (02:40)
[2021-08-07] MEDS ORDERED: REMERON7.5 MG PO (02:40)
[2021-08-07] MEDS ORDERED: SENNA-TABS8.6 MG PO (02:41)
[2021-08-07 02:46] LABS: HEMOGLOBIN 9.4 g/dl (12.0-16.0); IMMATURE GRANULOCYTES 0.7 % (0.0-5.0); MEAN CELL VOLUME 95.1 fL CALC (80.0-100.0); MEAN CORPUSCULAR HGB 28.8 pG CALC (26.0-32.0); MEAN CORPUSCULAR HGB CONC 30.3 g/dL CAL (32.0-36.0); NEUT# 10.74 thou/uL (2.00-7.15); RED BLOOD COUNT 3.26 mill/uL (4.20-5.60); RED CELL DISTRI WIDTH 12.4 % (11.5-15.5)
[2021-08-07 02:49] LABS: URINE BILIRUBIN - DIPSTICK NEGATIVE (NEGATIVE); URINE BLOOD DIPSTICK NEGATIVE (NEGATIVE); URINE COLOR YELLOW; URINE GLUCOSE - DIPSTICK NEGATIVE (NEGATIVE); URINE KETONE 15 mg/dL (NEGATIVE); URINE LEUK ESTERASE NEGATIVE (NEGATIVE); URINE PROTEIN - DIPSTICK TRACE mg/dL (NEG-TRACE); URINE SPECIFIC GRAVITY 1.015; URINE UROBILINOGEN - DIPSTICK 0.2 E.U./dL (0.2)
[2021-08-07 02:52] LABS: URINE NITRITE - DIPSTICK NEGATIVE (Negative)
[2021-08-07 02:57] LABS: URINE AMORPH SEDIMENT MANY hpf (NONE-FEW); URINE BACTERIA FEW hpf; URINE RBC 0-2 RBC/hpf (0-5); URINE SQUAMOUS EPITHELIAL CELL FEW EPI/hpf (0-FEW)
[2021-08-07 03:00] LABS: ALBUMIN 3.3 g/dL (3.2-5.0); BUN 20 mg/dL (8-23); BUN/CREATININE RATIO 67 (12-20 (CALC)); CREATININE 0.3 mg/dL (0.5-1.0); GFR > 60 ML/MIN (>=60 (CALC)); GFR FOR AFR.AMER. > 60 ML/MIN (>=60 (CALC)); MAGNESIUM 1.8 mg/dL (1.6-2.3); POTASSIUM 4.2 mmol/l (3.5-5.1); SGOT/AST 20 u/l (9-36); SODIUM 127 mmol/l (137-146); TOTAL PROTEIN 6.1 g/dL (6.3-8.2)
[2021-08-07 03:19] LABS: ALKALINE PHOSPHATASE 73 u/l (38-126); ANION GAP 7 (6-22 (CALC)); BILIRUBIN, TOTAL 0.5 mg/dL (0.0-1.4); CARBON DIOXIDE 45 mmol/l (22-30); CHLORIDE 79 mmol/l (95-108)
[2021-08-07 03:48] LABS: TSH, 3RD GENERATION 0.41 uIU/mL (0.47 - 4.68)
[2021-08-07 09:00] VITALS: BP 162/82
== END 2021-08-07 09:00 ==
LOC: ED 01:53
PROVIDERS: Family Medicine
DX: J43.9 Emphysema, unspecified (principal); R06.1 Stridor; E87.1 Hypo-osmolality and hyponatremia; F03.90 Unspecified dementia, unspecified severity, without behavioral disturbance, psychotic disturbance, mood disturbance, and anxiety; D86.9 Sarcoidosis, unspecified; K21.9 Gastro-esophageal reflux disease without esophagitis; I42.9 Cardiomyopathy, unspecified; Z99.81 Dependence on supplemental oxygen; Z20.822 Contact with and (suspected) exposure to COVID-19

== ENCOUNTER 2021-08-11 18:04 | Inpatient (IN) | payer MEDICARE, BC ==
[~2021-08-11] VITALS: Ht 152.4 cm; Wt 36.0 kg
[2021-08-11] VITALS (11 sets, daily range): BP systolic 52–137; BP diastolic 28–73
[~2021-08-11 18:04] MED LIST changes: +GABAPENTIN100 MG PO; +REMERON7.5 MG PO; +SENNA-TABS8.6 MG PO
--- NOTE | 2021-08-11 18:04 | NUR ---
PT TO ROOM VIA EMS STRETCHER.
--- NOTE | 2021-08-11 18:24 | NUR ---
ESTIMATED 2 MIN RUN OF V-TACH WITH PULSES MD AT BEDSIDE. PT CONVERTED BACK TO SINUS RHYTHM AT A RATE OF 75.
[2021-08-11 18:43] LABS: HEMATOCRIT 34.4 % (37.0-47.0); HEMOGLOBIN 10.6 g/dl (12.0-16.0); IMMATURE GRANULOCYTES 0.2 % (0.0-5.0); MEAN CELL VOLUME 92.2 fL CALC (80.0-100.0); MEAN CORPUSCULAR HGB 28.4 pG CALC (26.0-32.0); MEAN CORPUSCULAR HGB CONC 30.8 g/dL CAL (32.0-36.0); NEUT# 15.91 thou/uL (2.00-7.15); RED BLOOD COUNT 3.73 mill/uL (4.20-5.60); RED CELL DISTRI WIDTH 12.8 % (11.5-15.5)
[2021-08-11 18:47] LABS: URINE BILIRUBIN - DIPSTICK NEGATIVE (NEGATIVE); URINE BLOOD DIPSTICK NEGATIVE (NEGATIVE); URINE COLOR YELLOW; URINE GLUCOSE - DIPSTICK NEGATIVE (NEGATIVE); URINE KETONE 15 mg/dL (NEGATIVE); URINE LEUK ESTERASE NEGATIVE (NEGATIVE); URINE PROTEIN - DIPSTICK NEGATIVE (NEG-TRACE); URINE SPECIFIC GRAVITY 1.015; URINE UROBILINOGEN - DIPSTICK 0.2 E.U./dL (0.2)
[2021-08-11 18:48] LABS: URINE NITRITE - DIPSTICK NEGATIVE (Negative)
[2021-08-11 18:57] LABS: ALBUMIN 3.3 g/dL (3.2-5.0); ALKALINE PHOSPHATASE 69 u/l (38-126); BILIRUBIN, TOTAL 0.4 mg/dL (0.0-1.4); CHLORIDE 82 mmol/l (95-108); CREATININE 0.6 mg/dL (0.5-1.0); GFR > 60 ML/MIN (>=60 (CALC)); GFR FOR AFR.AMER. > 60 ML/MIN (>=60 (CALC)); SGOT/AST 30 u/l (9-36); SODIUM 128 mmol/l (137-146); TOTAL PROTEIN 6.2 g/dL (6.3-8.2)
[2021-08-11 19:04] LABS: BUN 71 mg/dL (8-23); BUN/CREATININE RATIO 118 (12-20 (CALC))
[2021-08-11 19:05] LABS: ANION GAP 9 (6-22 (CALC)); CARBON DIOXIDE 41 mmol/l (22-30); MAGNESIUM 2.8 mg/dL (1.6-2.3)
--- NOTE | 2021-08-11 19:42 | NUR ---
PT BEING PLACED ON BIPAP BY RT. SPOKE WITH HAYLIE PORTILLO.
--- NOTE | 2021-08-11 21:00 | NUR ---
TO FLOOR VIA STRETCHER WITH RN/RT IVP/PORTABLE MONITOR.
--- NOTE | 2021-08-11 21:00 | NUR ---
RECEIVED PATIENT FROM ED VIA STRETCHER. PATIENT AWAKE AND ORIENTED TO SELF. PATIENT ON BIPAP /, RATE 26, 40%. PATIENT ARRIVED WITH REMAINDER OF AZITHROMYCIN APPROXIMATELY 100ML AND NORMAL SALINE BOLUS 1800ML APPROXIMATELY 1500 REMAINING. PATIENT ORIENTED AND SETTLED INTO ROOM. INSTRUCTED ON USE OF CALL MENDEZ WILL REQUIRE RE-EDUCATION.
[2021-08-12] VITALS (22 sets, daily range): BP systolic 70–140; BP diastolic 41–75
--- NOTE | 2021-08-12 01:43 | NUR ---
CALLED [facility] SEEKING ASSISTANCE WITH ADMISSION HX (VACCINATIONS, LAST BM, HX OF FALLS) WITHOUT SUCCESS, CALL WAS NOT ANSWERED.
--- NOTE | 2021-08-12 02:47 | NUR ---
RESTING QUIETLY IN BED EYES CLOSED. NO DISTRESS NOTED. CALL LIGHT WITHIN REACH.
[2021-08-12 05:41] LABS: BUN 57 mg/dL (8-23); BUN/CREATININE RATIO 108 (12-20 (CALC)); CREATININE 0.5 mg/dL (0.5-1.0); GFR > 60 ML/MIN (>=60 (CALC)); GFR FOR AFR.AMER. > 60 ML/MIN (>=60 (CALC)); MAGNESIUM 2.5 mg/dL (1.6-2.3); POTASSIUM 4.2 mmol/l (3.5-5.1); SODIUM 131 mmol/l (137-146)
[2021-08-12 05:42] LABS: ANION GAP 10 (6-22 (CALC)); CHLORIDE 95 mmol/l (95-108)
[2021-08-12 05:43] LABS: CARBON DIOXIDE 30 mmol/l (22-30); HEMATOCRIT 32.1 % (37.0-47.0); HEMOGLOBIN 9.6 g/dl (12.0-16.0); MEAN CELL VOLUME 94.7 fL CALC (80.0-100.0); MEAN CORPUSCULAR HGB 28.3 pG CALC (26.0-32.0); MEAN CORPUSCULAR HGB CONC 29.9 g/dL CAL (32.0-36.0); RED BLOOD COUNT 3.39 mill/uL (4.20-5.60); RED CELL DISTRI WIDTH 12.8 % (11.5-15.5)
--- NOTE | 2021-08-12 07:39 | NUR ---
pt taken off niv and placed on room air. alesha well at this time. rn in room c pt. alesha well at this time. cat breeder to monitor.
--- NOTE | 2021-08-12 07:44 | NUR ---
PT SEEN AT REST IN THE BED WITH CPAP IN PLACE INITIALLY. PT IS EASILY AWAKENED, ORIENTED X 1. SHE KNOWS THAT SHE LIVES AT THE [place]. LUNGS CLEAR, BUT SHE DOES HAVE UNUSUAL LUNG SOUNDS. PT ASKS ABOUT HER COFFEE, APPARENTLY PART OF HER ROUTINE. CPAP REMOVED, NC PLACED AT 3 LPM, SEEN 100%.
--- NOTE | 2021-08-12 07:50 | NUR ---
placed pt on 3.5l nc s/p aerosolized bronchodilator therapy. biological science aide to monitor.
--- NOTE | 2021-08-12 09:39 | NUR ---
Patient was screened today for possible PT intervention. Patient presently using the bipap at this time and will not be able to participate with any PT intervention.
[2021-08-12] MEDS ORDERED: NEO/POLY/DEX0.13 OU (09:55)
--- NOTE | 2021-08-12 10:26 | NUR ---
pt in chair at bedside on niv. nad. vss. forest and conservation worker to monitor.
--- NOTE | 2021-08-12 10:28 | NUR ---
pt on nc. nad. hydrogen plant operator to monitor.
--- NOTE | 2021-08-12 12:14 | NUR ---
PT SEEN AT REST IN THE BED, NO DISTRESS. RESPIRATIONS ARE SONOROUS AT TIMES, NORMAL FOR PT.
--- NOTE | 2021-08-12 15:03 | NUR ---
S: NATALIYA PORTILLO is a 86 F who presents with pneumonia. She has a history of lung disease, COPD, GERD, dementia, cardiomyopathy, sarcoidosis, brochitis, hypothyroids CAD, chronic respiratory allergies, diverticulosis, DJD, diverticulitis and ASCVD. All medications in patient's chart were reviewed. O: VS: BP 118/59 mmHg, P: 154 BPM, RR: 26 BREATHS/MIN,T: 97.1degF W 36kg, HT 60 in, Scr=1 mg/dl, Crcl 24 ml/min A: Blood culture is pending. Urine culture is pending. P: Patient is on Zosyn 3.375g IV Q6h. Vancomycin ordered for pharmacy to dose. Start Vancomycin 500mg IV Q36h. Vancomycin trough is drawn before the 4th dose on 08/16/21 at 0600. Vancomycin goal trough is between 15-20 mcg/ml. Pharmacy will follow and or advise on antibiotics use as needed.
--- NOTE | 2021-08-12 15:07 | NUR ---
PT NAPPED INTO EARLY AFTERNOON, ATE HER MEAL WHEN AWAKE. PT WITH OCCASIONAL ACCELERATED HR INTO THE 160-180 RANGE WHICH RESOLVE ON THEIR OWN WITHIN A FEW MINUTES. PT DOES NOT FEEL ANYTHING DIFFERENT WHEN THEY HAPPEN. SATS CONTINUE AROUND 90%, PT ON 2 LPM NC.
--- NOTE | 2021-08-12 16:13 | NUR ---
LOPRESSOR HAS BEEN ORDERED FOR ACCELERATED HR BY ELIZABETH HENRY. AFTER TWO MGs IV, HR IS IN THE 90s, SR, AND BP IS STABLE AT 100/57.
--- NOTE | 2021-08-12 19:15 | NUR ---
awake. no resp distress. o2 cont per nc. human resources operations specialist shows sinus rhythm pacs pvcs hr 82. #22 rfa ns infusing @ 100cchr. skelton cath in place & draining well. fall precautions cont.
--- NOTE | 2021-08-12 22:00 | NUR ---
eyes closed. no distress.
[2021-08-13] VITALS (17 sets, daily range): BP systolic 103–167; BP diastolic 57–94
--- NOTE | 2021-08-13 00:01 | NUR ---
eyes closed. no distress. satellite project site monitor shows sinus rhythm hr 80.
--- NOTE | 2021-08-13 04:30 | NUR ---
lab here. blood drawn.
[2021-08-13 05:36] LABS: HEMATOCRIT 31.9 % (37.0-47.0); HEMOGLOBIN 9.4 g/dl (12.0-16.0); MEAN CELL VOLUME 97.9 fL CALC (80.0-100.0); MEAN CORPUSCULAR HGB 28.8 pG CALC (26.0-32.0); MEAN CORPUSCULAR HGB CONC 29.5 g/dL CAL (32.0-36.0); RED BLOOD COUNT 3.26 mill/uL (4.20-5.60)
[2021-08-13 05:57] LABS: ANION GAP 6 (6-22 (CALC)); CARBON DIOXIDE 35 mmol/l (22-30); CHLORIDE 98 mmol/l (95-108); CREATININE 0.5 mg/dL (0.5-1.0); GFR > 60 ML/MIN (>=60 (CALC)); GFR FOR AFR.AMER. > 60 ML/MIN (>=60 (CALC)); MAGNESIUM 2.3 mg/dL (1.6-2.3); POTASSIUM 4.3 mmol/l (3.5-5.1); SODIUM 135 mmol/l (137-146)
[2021-08-13 06:16] LABS: BUN 36 mg/dL (8-23); BUN/CREATININE RATIO 72 (12-20 (CALC))
--- NOTE | 2021-08-13 07:00 | NUR ---
BSSR RECEIVED FROM MIGUEL ÁNGEL SANDS. PT VSS, RESTING WITH EYES CLOSED. CALL LIGHT WITHIN REACH. SAFETY REVIEWED. WILL CONTINUE TO MONITOR.
--- NOTE | 2021-08-13 07:45 | NUR ---
nad. vss.fountain brush assembler to monitor.
--- NOTE | 2021-08-13 10:19 | NUR ---
SPOKE WITH DAUGHTER HAYLIE. UPDATED OF PLAN OF CARE, STATES UNDERSTANDING OF TRANSFER TO MED-SURG FLOOR WHEN BED AVAILABLE. ST AND PT IN TO SEE PATIENT. PATIENT IS WELL KNOWN TO SPEECH THERAPY DEPARTMENT AN OUTPATIENT. DIET MODIFIED, AND ST WILL SPEAK DIRECTLY TO MD FOR FURTHER ORDERS TO PLAN OF CARE. WILL AWAIT PHYSICAL THERAPY NOTE. PT DENIES PAIN, SOB OR DISCOMFORT. CALL LIGHT WITHIN REACH. INSTRUCTED PT TO CALL FOR ASSISTANCE, WILL CONTINUE TO MONITOR.
--- NOTE | 2021-08-13 12:59 | NUR ---
pt c nad. vss. steerer to monitor.
--- NOTE | 2021-08-13 15:33 | NUR ---
REPORT RECIVED FROM MIGUEL ÁNGEL SHERMAN
--- NOTE | 2021-08-13 15:40 | NUR ---
REPORT CALLED TO ROLAND KAUFMAN. PT STABLE AT TIME OF DEPARTURE. DAUGHTER CALLED AND UPDATED TO POC. STATES UNDERSTANDING. ALL BELONGINGS SENT WITH PATIENT AT TIME OF TRANSFER.
--- NOTE | 2021-08-13 15:51 | NUR ---
PT ARRIVED TO MED/SURG ROOM 280 IN STABLE CONDITION VIA HOSPITAL BED ACCOMPANIED BY ALBERT AND MIGUEL ÁNGEL SHERMAN;PT ALERT TO SELF AND PLEASANT, ORIENTED TO ROOM AND CALL LIGHT SYSTEM;VS OBTAINED AND ASSESSMENT COMPLETED; PT DENIES ANY CURRENT PAIN OR DISCOMFORTS,PAIN SCALE AND REPORTING EDUCATED;RESPIRATIONS SHALLOW ON O2 @ 3L VIA NC,DIMINISHED/WHEEZE LUNG SOUNDS NOTED;HX OF VOCAL CORD TRAMA;ABDOMEN SOFT ON PALPATION AND ACTIVE IN ALL 4 QUADRANTS,LAST BM 08/12/21;WEAK PEDAL PULSES;BRUISE NOTED TO CHIN, HEALING SKIN TEARS TO BILATERAL KNEES NOTED MEDICAID BILLING SPECIALIST & AQUACEL DRESSING NOTED TO PRESSURE ULCER TO COCCYX;CUMMINS CATHETER PATENT DRAINING CLEAR/YELLOW URINE TO GRAVITY WITH EASE;TELE MONITORING PLACE ON PATIENT AT THIS TIME;#22G TO RFA INFUSING NS @ 100ML/HR,SITE APPEARS HEALTHY;FALL AND ALLERGY BAND NOTED TO RIGHT WRIST;PT DENIES ANY ADDITIONAL NEEDS AND IS ENCOURAGED TO CALL FOR ASSISTANCE IF NEEDED;FALL PRECAUTIONS IN PLACE WITH BED IN THE LOWEST POSITION AND BED ALARM ON FOR SAFETY;CALL LIGHT IN REACH;WILL CONTINUE TO MONITOR
--- NOTE | 2021-08-13 17:40 | NUR ---
PT RESTING IN SEMI FOWLERS POSITION;RESPIRATIONS SHALLOW ON O2 @ 3L VIA NC;PT DENIES ANY CURRENT PAIN OR DISCOMFORTS;TELE MONITORING IN PLACE;IV SITE PATENT AND IV FLUIDS INFUSING WITH EASE; CUMMINS CATHETER REMOVED AT THIS TIME PER ORDER AND PT TOLERATED WELL;MEAL TRAY SET UP PER REQUEST;PT DENIES ANY ADDITIONAL NEEDS AND IS ENCOURAGED TO CALL FOR ASSISTANCE IF NEEDED;FALL PRECAUTIONS REMAIN IN PLACE WITH BED ALARM ON FOR SAFETY;CALL LIGHT IN REACH;WILL CONTINUE TO MONITOR
--- NOTE | 2021-08-13 18:40 | NUR ---
RT AT BEDSIDE ADMINISTERING BREATHING TX.
--- NOTE | 2021-08-13 19:30 | NUR ---
PATIENT SITTING UP ON THE BSC AT THIS TIME. PATIENT HAD DIFFICULTY WITH BM BUT FINALLY PASSED MODERATE AMT OF FORMED BROWN STOOL. PATIENT IS MAX ASSIST BACK TO BED. VERY WEAK. PATIENT WITH O2 VIA NASAL CANNULA IN PLACE AT 3LPM.PATIENT WITH STRIDER AT TIMES-HX OF VOCAL CORD DAMAGE IN THE PAST. SOB WITH EXHERSION. RECOVERS WELL WITH REST. ALERT AND ORIENTED X2. PLEASANT. VERY FRAIL. TELE MONITOR IN PLACE. IVF NS PATENT AND INFUSING VIA RIGHT FOREARM SITE ORDERED. AQUACEL FOAM TO COCCYX INTACT. BRUISE NOTED TO PATIENT SKIN. REPOSITIONED IN BED. HOB ELEVATED. SAFETY PRECAUTIONS REINFORCED. CALL LIGHT IN REACH.WILL CONT TO MONITOR.
--- NOTE | 2021-08-13 21:13 | NUR ---
PATIENT RESTING IN BED AT THIS TIME WITH HOB ELEVATED AND O2 VIA NASAL CANNULA IN PLACE AT 3LPM. O2 SAT IS 97% AT THIS TIME. EYES ARE CLOSED AND RESP ARE EVEN AND UNLABORED. STILL WITH NOISY BREATHING AT TIME. TELE MONTITOR IN PLACE. IVF NS PATENT AND INFUSING ORDERD. CALL LIGHT IN REACH. WILL CONT TO MONITOR.
--- NOTE | 2021-08-13 23:51 | NUR ---
PATIENT RESTING IN BED WITH O2 VIA NASAL CANNULA IN PLACE. EYES ARE CLOSED AND RESPS ARE EVEN AND UNLABORED. BREATHING QUIET AT THIS TIME. IVF PATIENT AND INFUSING VIA RIGHT FOREARM SITE AT 100CC/HR. TELE MONTIOR IN PLACE. CALL LIGHT IN REACH. WILL CONT TO MONITOR.
[2021-08-14 00:12] VITALS: BP 163/87
[2021-08-14 04:07] VITALS: BP 123/64
--- NOTE | 2021-08-14 04:21 | NUR ---
PATIENT RESTING IN BED AT THIS TIME WITH O2 VIA NASAL CANNULA IN PLACE AT 3LPM-O2 SAT IS 97% AT THIS TIME. IV SITE TO RIGHT FOREARM IS LEAKING AND WAS D/C'ED WITH CATH INTACT. NEW IV SITE STARTED TO LEFT WRIST-#22 WITH GOOD BLOOD RETURN. IVF NS PATENT AND INFUSING AT 100CC/HR. PATIENT HAS HAD LITTLE URINE OUTPUT SINCE CUMMINS D/C'ED YESTERDAY AT 1700-BLADDER SCAN WAS DONE AND SHOWS 318CC AT THIS TIME. PATIENT DENIES BEING UNCOMFORTABLE.NO DISTENSION NOTED. SAFETY PRECATIONS REINFORCED. CALL LIGHT IN REACH. WILL CONT TO MONITOR.
[2021-08-14 04:48] LABS: HEMATOCRIT 31.9 % (37.0-47.0); HEMOGLOBIN 9.2 g/dl (12.0-16.0); MEAN CELL VOLUME 98.5 fL CALC (80.0-100.0); MEAN CORPUSCULAR HGB 28.4 pG CALC (26.0-32.0); MEAN CORPUSCULAR HGB CONC 28.8 g/dL CAL (32.0-36.0); RED BLOOD COUNT 3.24 mill/uL (4.20-5.60)
[2021-08-14 05:09] LABS: ANION GAP 6 (6-22 (CALC)); BUN 25 mg/dL (8-23); BUN/CREATININE RATIO 58 (12-20 (CALC)); CARBON DIOXIDE 36 mmol/l (22-30); CHLORIDE 99 mmol/l (95-108); CREATININE 0.4 mg/dL (0.5-1.0); GFR > 60 ML/MIN (>=60 (CALC)); GFR FOR AFR.AMER. > 60 ML/MIN (>=60 (CALC)); POTASSIUM 4.1 mmol/l (3.5-5.1); SODIUM 137 mmol/l (137-146)
--- NOTE | 2021-08-14 05:40 | NUR ---
PATIENT ASSISTED OOB TO THE BSC TO VOOID 200CC OF YELLOW URINE AND THEN ASSISTED BACK INTO THE BED. IVF NS PATENT AND INFUSING ORDERED AT 100CC/HR. TELE MONITOR IN PLACE-LAST READING WAS SR-79. O2 VIA NASAL CANNULA T 2L IN PLACE. CALL LIGHT IN REACH. WILL CONT TO MONITOR.
--- NOTE | 2021-08-14 07:10 | NUR ---
REPORT RECEIVED FROM MIGUEL ÁNGEL ABDALLA
--- NOTE | 2021-08-14 08:00 | NUR ---
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
[2021-08-14 08:03] VITALS: BP 147/78
--- NOTE | 2021-08-14 10:02 | NUR ---
AND RUSSELL ANRP AT BEDSIDE DISCUSSING POC.
[2021-08-14] MEDS ORDERED: AZITHROMYCIN500 MG PO (10:18)
[2021-08-14] MEDS ORDERED: PREDNISONE20 MG PO (10:20)
[2021-08-14 10:30] VITALS: BP 141/68
--- NOTE | 2021-08-14 11:01 | NUR ---
REPORT CALLED TO MIGUEL ÁNGEL PATEL AT [facility].APPROX CASING CREW PUSHER TIME 1145 PER NURSE.
--- NOTE | 2021-08-14 11:57 | NUR ---
Discharge instructions given. Patient verbalizes understanding of same. Discharged in condition via Wheelchair to [facility] with *Other. All belongings sent with pt. PT TRANSPORTED TO [facility] VIA [facility] STAFF MEMBER AND ;ALL BELONGINGS LEFT WITH PT AT THIS TIME;[facility] STAFF MEMBER TO TRANSPORT PT BACK TO [facility]. D/C PACKET SENT AT THIS TIME WITH STAFF.
== END 2021-08-14 11:57 | DRG 191 ==
LOC: ED 18:04 → ED-I 19:33 → ED 19:48 → ICU 19:49 → MS2 08-13 15:25
PROVIDERS: Emergency Medicine; Nurse Practitioner; ADMIT Hospitalist; ATTEND Hospitalist
PROC: 5A09357 Assistance with Respiratory Ventilation, Less than 24 Consecutive Hours, Continuous Positive Airway Pressure (ICD-10-PCS; principal; 2021-08-11)
PROC: 0T9B70Z Drainage of Bladder with Drainage Device, Via Natural or Artificial Opening (ICD-10-PCS; 2021-08-11)
DX: J43.9 Emphysema, unspecified (principal); I42.9 Cardiomyopathy, unspecified; J96.12 Chronic respiratory failure with hypercapnia; J96.11 Chronic respiratory failure with hypoxia; R64 Cachexia; Z68.1 Body mass index [BMI] 19.9 or less, adult; G93.49 Other encephalopathy; I10 Essential (primary) hypertension; I25.10 Atherosclerotic heart disease of native coronary artery without angina pectoris; E03.9 Hypothyroidism, unspecified; F03.90 Unspecified dementia, unspecified severity, without behavioral disturbance, psychotic disturbance, mood disturbance, and anxiety; K21.9 Gastro-esophageal reflux disease without esophagitis; J38.00 Paralysis of vocal cords and larynx, unspecified; J38.5 Laryngeal spasm; E78.5 Hyperlipidemia, unspecified; D86.9 Sarcoidosis, unspecified; Z66 Do not resuscitate; Z99.81 Dependence on supplemental oxygen; Z20.822 Contact with and (suspected) exposure to COVID-19
CPT/HCPCS: J1650

== ENCOUNTER 2021-08-15 17:09 | Inpatient (IN) | payer MEDICARE, BC ==
[~2021-08-15] VITALS: Ht 152.4 cm; Wt 43.0 kg
[~2021-08-15 17:09] MED LIST changes: +AZITHROMYCIN500 MG PO; +NEO/POLY/DEX0.13 OU; +PREDNISONE20 MG PO
--- NOTE | 2021-08-15 17:10 | NUR ---
PT TO ROOM FOR TRIAGE VIA EMS STRETCHER.
[2021-08-15 17:43] LABS: GFR > 60 ML/MIN (>=60 (CALC)); GFR FOR AFR.AMER. > 60 ML/MIN (>=60 (CALC))
[2021-08-15 17:47] LABS: HEMATOCRIT 32.4 % (37.0-47.0); HEMOGLOBIN 9.3 g/dl (12.0-16.0); IMMATURE GRANULOCYTES 0.7 % (0.0-5.0); MEAN CELL VOLUME 97.6 fL CALC (80.0-100.0); MEAN CORPUSCULAR HGB CONC 28.7 g/dL CAL (32.0-36.0); NEUT# 11.36 thou/uL (2.00-7.15); RED BLOOD COUNT 3.32 mill/uL (4.20-5.60); RED CELL DISTRI WIDTH 13.1 % (11.5-15.5)
[2021-08-15 17:59] LABS: ALBUMIN 2.9 g/dL (3.2-5.0); ALKALINE PHOSPHATASE 65 u/l (38-126); BILIRUBIN, TOTAL 0.3 mg/dL (0.0-1.4); BUN 25 mg/dL (8-23); BUN/CREATININE RATIO 59 (12-20 (CALC)); CHLORIDE 95 mmol/l (95-108); CREATININE 0.4 mg/dL (0.5-1.0); GFR > 60 ML/MIN (>=60 (CALC)); GFR FOR AFR.AMER. > 60 ML/MIN (>=60 (CALC)); POTASSIUM 3.8 mmol/l (3.5-5.1); SGOT/AST 22 u/l (9-36); SODIUM 137 mmol/l (137-146); TOTAL PROTEIN 5.5 g/dL (6.3-8.2)
[2021-08-15 18:05] LABS: ANION GAP 5 (6-22 (CALC))
[2021-08-15 18:06] LABS: CARBON DIOXIDE 41 mmol/l (22-30)
--- NOTE | 2021-08-15 18:31 | NUR ---
IV MEDS INFUSING WITHOUT DIFFICULTY. VITALS STABLE ON MONITOR. WARM BLANKETS PROVIDED. BED IN LOW POSITION.
[2021-08-15 19:05] LABS: URINE BILIRUBIN - DIPSTICK NEGATIVE (NEGATIVE); URINE BLOOD DIPSTICK TRACE-INTACT (NEGATIVE); URINE COLOR YELLOW; URINE GLUCOSE - DIPSTICK NEGATIVE (NEGATIVE); URINE KETONE NEGATIVE (NEGATIVE); URINE LEUK ESTERASE NEGATIVE (NEGATIVE); URINE PROTEIN - DIPSTICK NEGATIVE (NEG-TRACE); URINE SPECIFIC GRAVITY 1.025; URINE UROBILINOGEN - DIPSTICK 0.2 E.U./dL (0.2)
[2021-08-15 19:06] LABS: URINE NITRITE - DIPSTICK NEGATIVE (Negative)
--- NOTE | 2021-08-15 19:40 | NUR ---
SPOKE WITH RELATIVE/HAYLIE TO ADVISED OF ADMISSION. ([phone]). [facility] CALLED AND GOT AN UPDATE WELL.
--- NOTE | 2021-08-15 19:55 | NUR ---
IV ABT INFUSING W/O INCIDENT, CALL MENDEZ WITHIN REACH
--- NOTE | 2021-08-15 20:20 | NUR ---
REPORT RECEIVED FROM Arpit FLORES RN
--- NOTE | 2021-08-15 20:22 | NUR ---
REPORT CALLED TO [facility] ON MED SURG
--- NOTE | 2021-08-15 20:50 | NUR ---
AWARE OF HYPERTENSION, ORDERS REC'D
--- NOTE | 2021-08-15 22:00 | NUR ---
B/P IMPROVED, 113/66, PT TO BE ADMITTED TO [facility]
--- NOTE | 2021-08-15 22:10 | NUR ---
PT TRANSPORTED TO MED SURG VIA STRETCHER, ALL BELONGINGS SENT WITH PT, PT TRASNPORTED ON O2 VIA NC.
--- NOTE | 2021-08-15 22:13 | NUR ---
PATIENT ARRIVED TO FLOOR VIA STRETCHER ACCOMPANIED BY A JAYESH RN
--- NOTE | 2021-08-15 22:13 | NUR ---
PATIENT AWAKE AND ORIENTED TO SELF. TRANSFERRED TO BED X3. PATIENT ON 3L VIA NASAL CANNULA OXYGEN SATURATION AT 91%. PATIENT ARRIVED WITH REMAINDER OF ROCEPHIN APPROXIMATELY 100ML PATIENT ORIENTED AND SETTLED INTO ROOM. INSTRUCTED ON USE OF CALL MENDEZ WILL REQUIRE RE-EDUCATION.
[2021-08-15 22:48] VITALS: BP 125/71
[2021-08-16] VITALS (15 sets, daily range): BP systolic 121–203; BP diastolic 70–97
--- NOTE | 2021-08-16 00:25 | NUR ---
VERBAL ORDER RECEIVED FROM DR SWENSON FOR HIGH BP. WILL ADMINISTER.
--- NOTE | 2021-08-16 00:50 | NUR ---
lABETOLOL IV ADMINISTERED. PT COMPLAINS OF URGENCY TO URINATE, PATIENT PALCED ON BED WITH NO OUTPUT, BLADDER SCANNED PATIENT AT THIS TIME. 50 ML OF URINE SCANNED, RE SCANNED PT AND RESULTED IN 57 ML.
--- NOTE | 2021-08-16 04:15 | NUR ---
PATIENT DEMARCO LARGE INCONTINENT EPISODE. STATES NOW SHE IS "READY TO GO TO SLEEP"
[2021-08-16 05:15] LABS: HEMATOCRIT 33.2 % (37.0-47.0); HEMOGLOBIN 9.9 g/dl (12.0-16.0); MEAN CORPUSCULAR HGB 28.6 pG CALC (26.0-32.0); MEAN CORPUSCULAR HGB CONC 29.8 g/dL CAL (32.0-36.0); RED BLOOD COUNT 3.46 mill/uL (4.20-5.60); RED CELL DISTRI WIDTH 13.1 % (11.5-15.5)
[2021-08-16 05:25] LABS: BUN 19 mg/dL (8-23); BUN/CREATININE RATIO 68 (12-20 (CALC)); CHLORIDE 92 mmol/l (95-108); CREATININE 0.3 mg/dL (0.5-1.0); GFR > 60 ML/MIN (>=60 (CALC)); GFR FOR AFR.AMER. > 60 ML/MIN (>=60 (CALC)); POTASSIUM 3.6 mmol/l (3.5-5.1); SODIUM 135 mmol/l (137-146)
[2021-08-16 05:35] LABS: ANION GAP 4 (6-22 (CALC)); CARBON DIOXIDE 43 mmol/l (22-30); MAGNESIUM 1.6 mg/dL (1.6-2.3)
--- NOTE | 2021-08-16 06:44 | NUR ---
NEB TX STOPPED. PT. SAYS SHE DOESN'T NEED AND CAN'T TAKE ANYMORE.
--- NOTE | 2021-08-16 07:00 | NUR ---
RECIEVED REPORT FROM MIGUEL ÁNGEL COTTO
--- NOTE | 2021-08-16 07:27 | NUR ---
PT RESTING IN SEMI FOWLERS POSITION. PT IS A/O X2 WITH SOME CONFUSION. ASSESSMENT AND VITALS COMPLETED. RESPIRATIONS ARE LABORED 96% ON 3L NC , HX OF VOCAL CORD SURGERY. HEART RHYTHM NORMAL WITH TELE IN PLACE. BOWEL SOUNDS ARE ACTIVE. #20G RAC INFILTRATED, NEW TO BE STARTED. SCATTERED SKIN TEARS AND BRUISING NOTED THROUGH OUT BODY. PT COMPLAINS OF 5/10 LOWER BACK PAIN.PULSES STRONG. PT REPOSITIONED IN BED FOR BREAKFAST. BLE ELEVATED WITH PILLOW X2. PT DENIES OF ANY ADDITIONAL NEEDS AT THIS TIME. ALL SAFETY PRECAUTIONS ARE IN PLACE WITH CALL LIGHT IN REACH. WILL CONTINUE TO MONITOR.
--- NOTE | 2021-08-16 08:43 | NUR ---
NEW #20G RFA STARTED, SITE APPEARS HEALTHY AND PATENT. #20G RAC REMOVED. MORNING MEDICATIONS ADMINISTERED. PT TOLERATED WELL.
--- NOTE | 2021-08-16 10:16 | NUR ---
DR BOYER AND RUSSELL,ANRP AT BEDSIDE
--- NOTE | 2021-08-16 10:37 | NUR ---
REASSESSMENT OF BP REUSLTING IN 178/83, HR 72, O2 100% ON 3L NC. RESPIRATIONS CONTINUE TO BE LABORED. PT DENIES OF ANY ADDITIONAL AT THIS TIME. ALL SAFETY PRECAUTIONS ARE IN PLACER WITH CALL LLIGHT IN REACH. WILL CONTINUE TO MONITOR.
--- NOTE | 2021-08-16 10:41 | NUR ---
HAYLIE DAUGHTER UPDATED ON PT STATUS. PASSCODE PROVIDED.
--- NOTE | 2021-08-16 11:17 | NUR ---
BP 183/81, HR 74. APRESOLINE ADMINISTERED BY MIGUEL ÁNGEL HERNANDEZ.
--- NOTE | 2021-08-16 11:18 | NUR ---
APRESOLINE 10 MG GIVEN VIA IVP FOR BP OF 183/81. IV REMAINS HEALTHY AND PATENT. BP TO BE RE-ASSESSED.
--- NOTE | 2021-08-16 11:50 | NUR ---
REASSESSMENT OF BP RESULTING IN 154/74, HR 92, O2 92% ON 3L NC. RESPIRATIONS REMAINS LABORED. PT INSTRUCTED TO BREATH IN NOSE AND OUT MOUTH. PT APPEARS TO CALM DOWN. PT DENIES OF ANY ADDITIONAL NEEDS. ALL SAFETY PRECAUTIONS ARE IN PLACE WITH CALL LIGHT IN REACH. WILL CONTINUE TO MONITOR
--- NOTE | 2021-08-16 11:54 | NUR ---
PT MOVED TO ROOM 280 DUE TO PT COMPLAINING OF BEING COLD. PT DENIES OF ANY PAINS OR DISCOMFORTS AT THIS TIME. ALL SAFETY PRECAUTIONS ARE IN PLACE WITH CALL LIGHT IN REACH. WILL CONTINUE TO MONITOR
--- NOTE | 2021-08-16 12:53 | NUR ---
PT COMPLAINS OF NAUSEA. ZOFRAN ADMINISTERED.
--- NOTE | 2021-08-16 13:02 | NUR ---
NEW #20G RAC STARTED FOR CTA. PT TOLERATED WELL. WILL CONTINUE TO MONITOR
--- NOTE | 2021-08-16 13:04 | NUR ---
#20G RAC INITIATED X2 ATTEMPTS BY THIS JEWEL CORNER BRUSHING MACHINE OPERATOR . PT TOLERATED WELL. GOOD BLOOD RETURN, HEALTHY AND PATENT.
--- NOTE | 2021-08-16 13:36 | NUR ---
PT INCONT OF MED AMOUNT OF URINE AT THIS TIME. DARLING CARE PROVIDED. PURE WHICK APPLIED.
--- NOTE | 2021-08-16 14:32 | NUR ---
CALLED TO ROOM. PT ASKED EMBLEM FUSER TENDER TO HELP GIRL THAT FELL ON THE FLOOR. PT INFORMED THAT THERE WAS NO GIRL ON THE FLOOR. PT STATES "SHE WAS THERE A MINUET AGO." PT ORIENTED TO TIME AND PLACE. PT DENIES OF ANY PAINS OR DISCOMFORTS. ALL SAFETY PRECAUTIONS ARE IN PLACE WITH CALL LIGHT IN REACH. WILL CONTINUE TO MONITOR
--- NOTE | 2021-08-16 15:00 | NUR ---
BP RESULTING IN 167/80, HR 95, O2 96%.RUSSELL,ANCRISTIAN NOTFIED OF BP.,
--- NOTE | 2021-08-16 15:09 | NUR ---
PT TRANSPORTED TO CT VIA BED ACCOMPAINED BY PARUL ANN IN STABLE CONDITION ON 3L NC.
--- NOTE | 2021-08-16 15:30 | NUR ---
PT EDUCATED ON DC INSTRUCTIONS AND NEW MEDICAITONS. PT VERBALIZED UNDERSTANDING. MIGUEL ÁNGEL SU TO EXPLAIN ANR DC INSTRUCTIOSN. IV REMOVED WITH CATH STILL INTACT. PT TOLERATED WELL. WAITING TRANSPORTATION. WILL CONTINUE TO MONITOR
--- NOTE | 2021-08-16 16:15 | NUR ---
PT SLEEPING IN SEMI FOWLERS POSITION. RESIRATIONS SHALLOW. #20G RFA AND #20G RAC REMAINS IN PLACE. TELE MONITORING IN PLACE. PUREWHICK IN PLACE. NO SIGNS OF ANY PAINS OR DISCOMFORTS AT THIS TIME. ALL SAFETY PRECAUTIONS ARE IN PLACE WITH CALL LIGHT IN REACH. WILL CONTINUE TO MONITOR
--- NOTE | 2021-08-16 17:22 | NUR ---
BP RESULTING IN 169/72, HR 85. MIGUEL ÁNGEL PENA TO ADMINISTER APRESOLINE.
--- NOTE | 2021-08-16 17:23 | NUR ---
10 MG APRESOLINE ADMINISTERED VIA IVP TO #20G RAC FOR BP OF 169/72 HR 85. PT TOLERATED WELL. BP TO BE RE-ASSESSED.
--- NOTE | 2021-08-16 17:34 | NUR ---
RT AT BEDSIDE
--- NOTE | 2021-08-16 17:35 | NUR ---
NURSE CALLED AND REQUESTED NEB TX BE GIVEN EARLY.
--- NOTE | 2021-08-16 17:57 | NUR ---
REASSESSMENT OF BP RESULTING IN 150/79, HR 95, O2 95 ON 3L NC.
--- NOTE | 2021-08-16 20:00 | NUR ---
PATIENT RESTING IN BED WITH EYES CLOSED. RESPS TO VERBAL STIMULI-AWAKE ALERT AND ORIENTED TO PERSON. O2 VIA NASAL CANNULA IN PLACE AT 2LPM-O2 SAT IS 94%. 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 TELE MONITOR IN PLACE-LAST READING SR-89. PATIENT WITH 2 IV SITES IN RIGHT ARM-RIGHT FOREARM AND RAC-BOTH WERE FLUSHED WITH FOOD BLOOD RETURN. PATIENT WITH PUREWICK IN PLACE-DRAINING CLEAR YELLOW URINE. PATIENT TAKING MEDS WITH THICKENED LIQUIDS AND TOLERATED WELL. AZITHRO HUNG ORDERED. LOVENOX SQ GIVEN. COLOR IS PALE AND SKIN IS WARM AND DRY. SKIN IS VERY FRAGILE-MULTIPLE SKIN TEARS INCLUDING RIGHT UPPER ARM WITH STERI-STRIPS, LEFT CALF AND VYAS. BLE ARE DISCOLORED AND BOTH FEET ARE SWOLLEN. ELEVATED ON PILLOWS. SCABBED AREA NOTED TO RIGHT FOOT. SAFETY PRECATIONS REINFORCED. CALL LIGHT IN REACH. WILL CONT TO MONITOR.
--- NOTE | 2021-08-17 00:18 | NUR ---
PATIENT RESTING IN BED AT THIS TIME WITH HOB ELEVATED AND O2 VIA NASAL CANNULA IN PLACE AT 2LPM. TELE MONITOR IN PLACE. PUREWICK DRAINING YELLOW URINE. STILL WITH CHRONIC STRIDOR AT TIMES. CALL LIGHT IN REACH. WILL CONT TO MONITOR.
--- NOTE | 2021-08-17 02:31 | NUR ---
PATIENT RESTING IN BED WITH O2 VIA NASAL CANNULA IN PLACE-O2 SAT AT THIS TIME IS 96%. EYES ARE CLOSED. RESPS ARE EVEN. BREATHING IS WITH SLIGHT STRIDOR AT THIS TIME. TELE MONITOR IN PLACE. PURE WICK DRAINING YELLOW URINE. CALL LIGHT IN REACH. WILL CONT TO MONITOR.
[2021-08-17 04:30] VITALS: BP 117/65
--- NOTE | 2021-08-17 04:41 | NUR ---
PATIENT RESTING IN BED WITH HOB ELEVATED AND O2 VIA NASAL CANNULA IN PLACE AT 2LPM WITH O2 SAT OF 95%. EYES ARE CLOSED. RESPS ARE EVEN AND STRIDOR IS SLIGHT AT THIS TIME. PUREWICK DRAINING YELLOW URINE. TELE MONITOR IN PLACE WITH LAST READING SR-86 WITH PVC'S. SALINE LOCKS TO RIGHT ARMX2 INTACT. CALL LIGHT IN REACH. WILL CONT TO MONITOR.
[2021-08-17 05:55] LABS: HEMOGLOBIN 9.6 g/dl (12.0-16.0); MEAN CELL VOLUME 96.1 fL CALC (80.0-100.0); MEAN CORPUSCULAR HGB 28.8 pG CALC (26.0-32.0); RED BLOOD COUNT 3.33 mill/uL (4.20-5.60); RED CELL DISTRI WIDTH 13.2 % (11.5-15.5)
[2021-08-17 06:15] LABS: BUN 16 mg/dL (8-23); BUN/CREATININE RATIO 37 (12-20 (CALC)); CHLORIDE 84 mmol/l (95-108); CREATININE 0.4 mg/dL (0.5-1.0); GFR > 60 ML/MIN (>=60 (CALC)); GFR FOR AFR.AMER. > 60 ML/MIN (>=60 (CALC)); MAGNESIUM 1.9 mg/dL (1.6-2.3); POTASSIUM 3.1 mmol/l (3.5-5.1); SODIUM 133 mmol/l (137-146)
[2021-08-17 06:21] LABS: ANION GAP 7 (6-22 (CALC))
[2021-08-17 06:22] LABS: CARBON DIOXIDE 45 mmol/l (22-30)
--- NOTE | 2021-08-17 06:28 | NUR ---
RECEIVED CALL FROM LAB WITH CRITICAL CO2-45. PATIENT. PATIENT WITH HX OF HIGH CO2. WILL CONT TO MONITOR.
--- NOTE | 2021-08-17 07:00 | NUR ---
RECIEVED REPORT FROM MIGUEL ÁNGEL MONTIEL
[2021-08-17 07:48] VITALS: BP 140/80
--- NOTE | 2021-08-17 07:48 | NUR ---
PT WAKEN TO SPEECH. PT IS A/O X2. ASSESSMENT AND VITALS COMPLETED. BP 140/80, HR 86, O2 96% ON 2L NC. RESPIRATIONS ARE LABORED, HX OF VOCAL CORD SURGERY. REPORTS THIS IS PT NORMAL BREATHING PATTERN. HEART RHYTHM NORMAL WITH TELE IN PLACE. BOWEL SOUNDS ARE ACTIVE. #20G RAC AND #20G RFA FLUSHED, SITE APPEAR HEALTHY AND PATENT. SCATTERED SKIN TEAR TO ILENE AND LLE NOTED, STIRY STRIPS APPLIED. DISCOLORATION OF BLE. HEEL PROTECTOR APPLIED WITH PILLOW X1. PUREWHICK IN PLACE. PT DENIES OF PAINS OR DISCOMFORTS AT THIS TIME. ALL SAFTEY PRECAUTIONS ARE IN PLACE WITH CALL LIGHT IN REACH. WILL CONTINUE TO MONITOR
--- NOTE | 2021-08-17 10:18 | NUR ---
Pt known to ST service from previous MBS which showed aspiration of thin liquids. Consider updated swallow evaluation given recurrent PNA if medical team agrees.koko
--- NOTE | 2021-08-17 10:20 | NUR ---
PT ARRIVED BACK TO MED SURG ROOM 280 IN STABLE CONDITION. RESPIRATIONS ARE LABORED ON 2L NC. TELE MONITORING IN PLACE. PT DENIES OF ANY PAINS. ALL SAFTEY PRECAUTIONS ARE IN PLACE WITH CALL LIGHT IN REACH. WILL CONTINUE TO MONITOR.
--- NOTE | 2021-08-17 10:21 | NUR ---
PT TRANSPORTED DOWN TO US VIA BED ACCOMPAINED BY PARUL MAYER IN STABLE CONDITION
--- NOTE | 2021-08-17 10:30 | NUR ---
DR CHÁVEZ CALLED FOR CONSULTATION. IPAD FOR [employer] NOT WORKING. MIS CONTACTED. DR CHÁVEZ TO BE CALLED BACK WHEN CONNECTION TO IPAD IS FIXED.
[2021-08-17 11:30] VITALS: BP 148/83
--- NOTE | 2021-08-17 12:05 | NUR ---
PT SLEEPING IN SEMI FOWLERS POSITION. RESPIRATIONS ARE SHALLOW. STRIDOR NOT NOTED WHEN SLEEPING, ONLY WHEN PT IS AWAKEN. #20G RAC AND #20G RFA REMAINS IN PLACE. PUREWHICK CATH IN PLACE. CLEAR YELLOW URINE NOTED. NO SIGNS OF ANY PAINS OR DISCOMFORTS.TELE MONITORING IN PLACE. PT INTAKE REMAINS MINIMAL. ACCUCHECK REUSLTING IN 98. ALL SAFETY PRECAUTIONS ARE IN PLACE WITH CALL LIGHT IN REACH. WILL CONTINUE TO MONITOR
--- NOTE | 2021-08-17 12:15 | NUR ---
DAUGHTER IN LAW HAYLIE CALLED REQUESTING UPDATE. PASSCODE PROVIDED.
--- NOTE | 2021-08-17 12:30 | NUR ---
IPAD FOR TELE HEALTH FIXED BY [facility]. DR CHÁVEZ CONTACTED. NO ANSWER. VOICE MAIL LEFT
--- NOTE | 2021-08-17 13:14 | NUR ---
Patient participated with PT intervention today. Patient carried out supine to sitting bed mobility log rolling ADLs and sit to stand push off ADLs with moderate assistance x 1 (1 to 3 reps) with constant verbal and tactile cuing to help decrease trick movements and fall risks. Patient also did AAROM exercises for B LE in seated position doing hip flexion, hip adduction, hip abduction, hamstring curls, knee extension, and ankle pumps for 10 reps x 2 sets with constant verbal and tactile cuing to help decrease trick movements and fall risks.
--- NOTE | 2021-08-17 14:30 | NUR ---
PT OFFERED SIPS OF WATER. PT REFUSED. PT ENCOURAGED TO DRINK DUE TO LIPS BEING DRY AND POOR ORAL INTAKE TODAY. PT AGREED. SMALL SIPS OF WATER ADMINSTERED. PT TOLERATED WELL.
[2021-08-17 15:00] VITALS: BP 165/75
--- NOTE | 2021-08-17 15:45 | NUR ---
REPORTED BP OF 165/75. REASSESSMENT COMPLETED 148/74, HR 78, O2 97% ON 2L NC. RESPIRATIONS REMAINS LABORED, STRIDOR NOTED. #20G RAC AND RFA REMAINS IN PLACE. TELE MONITORING IN PLACE. PUREWHICK IN PLACE. PT DENIES OF ANY PAINS OR DISCOMFORTS AT THIS TIME. ALL SAFTEY PRECAUTIONS ARE IN PLACE. WILL CONTINUE TO MONITOR
[2021-08-17 16:01] VITALS: BP 148/74
--- NOTE | 2021-08-17 18:04 | NUR ---
PT REFUSES DINNER AT THIS TIME. JUICE OFFERED. PT REFUSES. FRESH WATER PROVIDED.
[2021-08-17 19:19] VITALS: BP 121/59
--- NOTE | 2021-08-17 19:25 | NUR ---
PATIENT RESTING IN BED AT THIS TIME WITH O2 VIA NASAL CANNULA IN PLACE AT 2LPM. O2 SAT AT THIS TIME IS 97. 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 PATIENT RESPONDS TO VERBAL STIMULI-ORIENTED TO PERSON AND PLACE. STATES THAT SHE WANTS TO GO HOME. IV SITE TO RIGHT ARM-RAC AND RIGHT FOREARM BOTH FLUSHED WITH SALINE AND BOTH HEALTHY WITH GOOD BLOOD RETURNS. TELE MONITOR IN PLACE WITH LAST READING BEING SR-80'S WITH PVC'S. LUNGS ARE DIMINISHED. ABD IS SOFT WITH BS+. PUREWICK IN PLACE AT THIS TIME FOR URINE INCONT. PATIENT WITH BLE ELEVATED ON PILLOWS AND HEEL PROTECTORS IN PLACE. NO SWELLING NOTED. PATIENT WITH MULTIPLE SKIN ISSUES WITH EECCYMOTIC AREAS TO BLE. SKIN TEAR TO RIGHT UPPER ARM WITH STERI STRIPS, LEFT CALF WITH SKIN TEAR AND STERI-STRIPS, BRUISE NOTED ALSO TO CHIN. SKIN IS EXTEMEMLY FRAGILE. PATIENT DENIES ANY PAIN AT THIS TIME. SAFETY PRECAUTIONS REINFORCED. CALL LIGHT IN REACH. WILL CONT TO MONITOR.
--- NOTE | 2021-08-17 20:34 | NUR ---
PATIENT RESTING IN BED WITH HOB ELEVATED. PATIENT ABLE TO TELL ME HERE NAME AND FOR HER MEDICATIONS. PATIENT WAS ABLE TO TAKE HER PO MEDS WITH NECTAR THICK APPLE JUICE WITHOUT ANY DIFFICULTY-NO COUGHING NOTED. OFFERED PATIENT HS SNACK BUT DECLINED AT THIS TIME. CALL LIGHT IN REACH. WILL CONT TO MONITOR.
--- NOTE | 2021-08-17 23:57 | NUR ---
PATIENT RESTING IN BED WITH HOB ELEVATED. O2 VIA NASAL CANNULA REMAINS IN PLACE. ZOSYN HUNG AND INFUSING VIA RIGHT FOREARM IV SITE ORDERED. PATIENT OFFERED THCIKENED APPLE AND DRANK APPROX 2OZ AT THIS TIME. NO COUGHING NOTED. TELE MONITOR IN PLACE. CALL LIGHT IN REACH. WILL CONT TO MONITOR.
[2021-08-18] VITALS: BP 145/70
--- NOTE | 2021-08-18 02:15 | NUR ---
PATIENT TURNED AND REPOSITIONED IN BED. LOTION APPLIED TO HER BACK. PUREWICK WAS CHANGED AND PERICARE WAS GIVEN WITH SOAP AND WATER. DRAINING YELLOW URINE. PATIENT CONT TO TAKE SIPS OF THICKENED APPLE JUICE WITHOUT AND COIGHING OR DIFFICULTY FROM CUP-NO STRAWS. FEET ELEVATED ON PILLOWS WITH HEEL PROTECTORS IN PLACE. SALINE LOCES TO RIGHT ARM REMAIN INTACT. TELE MONITOR IN PLACE. O2 VIA NASAL CANNULA IN PLACE. 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 O2 SATS REMAIN STABLE>92%. CALL LIGHT IN REACH. WILL CONT TO MONITOR.
[2021-08-18 04:00] VITALS: BP 152/81
--- NOTE | 2021-08-18 05:45 | NUR ---
PATIENT RESTING IN BED-MEDICATED WITH ZOFRAN 4MG IVP FOR C/O NAUSEA AND ZOSYN INFUSING ORDERED VIA RIGHT FOREARM IV SITE. PATIENT IS MORE ALERT TONIGHT-MORE INTERACTIVE. ASKING WHAT TIME IT IS THIS MORE. ORIENTED TO PERSON AND PLACE. KNOW HER BIRTHDATE. TAKING THICKENED PO FLUIDS BETTER. CALL LIGHT IN REACH. WILL CONT TO MONITOR.
--- NOTE | 2021-08-18 07:00 | NUR ---
REPORT RECEIVED FROM MIGUEL ÁNGEL ABDALLA
[2021-08-18 07:35] VITALS: BP 154/75
--- NOTE | 2021-08-18 07:35 | NUR ---
PT RESTING IN SEMI FOWLERS POSITION,A&O TO PERSON AND PLACE;VS OBTAINED AND ASSESSMENT COMPLETED;PT DENIES ANY CURRENT PAIN OR DISCOMFORTS,PAIN SCALE AND REPORTING EDUCATED;RESPIRATIONS EVEN AND UNLABORED ON O2 @ 2L VIA NC,DIMINISHED LUNG SOUNDS;HX OF VOCAL CORD TRAMUA NOTED STRIDOR BREATHING AT TIMES;ABDOMEN SOFT ON PALPATION AND ACTIVE IN ALL 4 QUADRANTS;PUREWICK CATHETER IN PLACE DUE TO INCONTINENCE;WEAK PEDAL PULSES;MULTIPLE BRUISES AND SKIN TEARS NOTED TO ILENE,BLE,RT FOOT, LEFT THIGH;PHOTOGRAPHS IN CHART;#20G TO RAC AND #20G TO RFA FLUSHED AND PATENT,BOTH SITES APPEAR HEALTHY;TELE MONITORING IN PLACE;FALL,ALLERGY,AND DNR BANDS NOTED;PT DENIES ANY ADDITIONAL NEEDS AND IS ENCOURAGED TO CALL FOR ASSISTANCE IF NEEDED;FALL PRECAUTIONS IN PLACE WITH BED IN THE LOWEST POSITION AND BED ALARM ON FOR SAFETY;CALL LIGHT IN REACH;WILL CONTINUE TO MONITOR
--- NOTE | 2021-08-18 08:50 | NUR ---
OXYGEN RESULTING IN 80'S ON 2L VIA NC, O2 INCREASED TO 3L AT THIS TIME; OXYGEN RE-CHECKED BY RT RESULTING AT 92%;PT ASYMPTOMATIC;CALL LIGHT IN REACH;WILL CONTINUE TO MONITOR
--- NOTE | 2021-08-18 09:30 | NUR ---
COVID19 NASAL SWAB COMPLETED AT THIS TIME TO RIGHT NARE PER ORDER;PT TOLERATED WELL AND SAMPLE SENT TO LAB;WILL CONTINUE TO MONITOR
--- NOTE | 2021-08-18 09:37 | NUR ---
PHYSICAL AND OCCUPATIONAL THERAPY AT BEDSIDE WORKING WITH PT.
--- NOTE | 2021-08-18 09:40 | NUR ---
SPEECH THERAPY AT BEDSIDE WORKING WITH PT.
--- NOTE | 2021-08-18 10:14 | NUR ---
PT SEEN IN BED, WAS OBSERVED TO HAVE LABORED BREATHING WHILE RESTING IN SUPINE. SHE SAID SHE HAD REFUSED BREAKFAST BUT AGREED TO TRY EATING PEACHES AND APPLESAUCE. PT REPORTED TO BE NAUSEUS AND TIRED WITH JUST A FEW BITES. PT NOTED TO HAVE POSTURAL AND ACTION TREMOR WHILE REACHING FOR FOOD ITEMS AND SPOON.
--- NOTE | 2021-08-18 10:29 | NUR ---
Patient participated with PT intervention today. Patient states that she feels tired today. Patient carried out log rolling supine to sitting bed mobility ADL with 1 to 3 attempts with mod A x 1 with patient struggling with proper positioning. Patient also did B LE seated AROM exercises doing hip flexion, hip adduction, hip abduction, hamstring curls, knee extension, and ankle pumps for 15 reps x 2 sets with occasional verbal and tactile cuing to help decrease trick movements and fall risk.
--- NOTE | 2021-08-18 10:36 | NUR ---
AND RUSSELL KENDALLRP AT BEDSIDE DISCUSSING POC.
[2021-08-18 11:15] VITALS: BP 157/74
--- NOTE | 2021-08-18 11:30 | NUR ---
PT RESTING IN SEMI FOWLERS POSITION;RESPIRATIONS SHALLOW ON O2 @ 3L VIA NC;PT DENIES ANY CURRENT PAIN BUT DOES REPORT NAUSEA, PT TO BE MEDICATED WITH PRN ZOFRAN 4MG IVP PER ORDER;TELE MONITORING IN PLACE;X2 IV SITES PATENT AND ABX STARTED AT THIS TIME;PUREWICK CATHETER IN PLACE DRAINING TO SUCTION WITH EASE;PT ENCOURAGED TO CALL FOR ASSISTANCE IF NEEDED;FALL PRECAUTIONS REMAIN IN PLACE WITH BED ALARM ON FOR SAFETY AND CALL LIGHT IN REACH;WILL CONTINUE TO MONITOR
--- NOTE | 2021-08-18 12:19 | NUR ---
RT AT BEDSIDE ADMINISTERING BREATHING TX.
--- NOTE | 2021-08-18 15:30 | NUR ---
PT RESTING IN SEMI FOWLERS POSITION;RESPIRATIONS SHALLOW ON O2 @ 3L VIA NC;PT DENIES ANY CURRENT PAIN OR DISCOMFORTS;TELE MONITORING IN PLACE;X2 IV SITES REMAIN PATENT;PARTIAL BED BATH PROVIDED AND NEW PUREWICK CATHETER PLACED;PT DENIES ANY CURRENT NEEDS AND IS ENCOURAGED TO CALL FOR ASSISTANCE IF NEEDED;BED ALARM ON FOR SAFETY WITH CALL LIGHT IN REACH;WILL CONTINUE TO MONITOR
[2021-08-18 16:20] VITALS: BP 160/84
[2021-08-18 19:00] VITALS: BP 150/68
--- NOTE | 2021-08-18 19:07 | NUR ---
PT RESTING IN BED, NO SIGNS OF DISTRESS NOTED,PT ALERT AND ORIENTED X2.RESP EVEN AND LABORED BREATHING NOTED, PT STATES HX OF LARYNGEAL STENOSIS AND STRIDOR, LUNG SOUNDS NORMAL PER PT. NOTED MULTIPLE SKIN TEARS TO BUE AND BLE, SEE CHART FOR PHOTOS. HEEL PROTECTORS IN PLACE, ELEVATED BLE ON PILLOWS. PUREWICK IN PLACE. IV SL X2 TO RAC RFA, FLUSHED WELL. ASSESSMENT COMPLETED, CALL LIGHT IN REACH,CONTINUE TO MONITOR.
[2021-08-19] VITALS (18 sets, daily range): BP systolic 114–146; BP diastolic 55–77
--- NOTE | 2021-08-19 | NUR ---
PT RESTING IN BED, IV ZOSYN INFUSING, NO SIGNS OF DISTRESS NOTED, PT VOICES NO NEEDS OR COMPLAINTS AT THIS TIME, CALL LIGHT IN REACH,CONTINUE TO MONITOR.
--- NOTE | 2021-08-19 03:45 | NUR ---
RECEIVED CALL FROM ED STATING PT HR 160S POSSIBLY CONVERTED TO AFIB, PT C/O SOB, AND "FEEL FUNNY". EKG OBTAINED, ATTEMPTING TO OBTAIN SPO2 PT FINGERS COLD. SPO2 REACHED 92% AT 5 LITERS. EKG CONFIRMED AFIB RVR, CALL MADE TO SOLID TIRE FINISHER PROVIDER TO TRANSFER PT TO ICU AND START CARDIZEM GTT AND HEPARIN GTT. CALL MADE TO ICU OBTAINED BED ASSIGNMENT, DISCUSSED WITH PT ORDERS TO TRANSFER TO ICU DUE TO IRREGULAR HEART RYTHYM, PT VERBALIZED UNDERSTANDING. PT TRANSFERRED TO ICU RM 1 ON 6L NC. REPORT GIVEN TO DORY DEL ROSARIO
--- NOTE | 2021-08-19 04:22 | NUR ---
CALL MADE TO SON (NEXT TO NOTIFY) LIANE PORTILLO, NO ANSWER, LEFT MESSAGE TO RETURN CALL.
[2021-08-19 04:23] LABS: ACT PARTIAL THROMBO TIME 22.7 SECONDS (20.0-32.5); PROTHROMBIN TIME 10.4 SECONDS (9.0-12.5)
--- NOTE | 2021-08-19 04:50 | NUR ---
PATIENT ARRIVED FROM MED SURGE UNIT 0350. JAMES STARTED AND CARDIZAM DRIP STARTED. PATIENT IN AFIB WITH LOW BP AND LOW O2. RT CALLED AND PATIENT PUT ON BIPAP. PATIENT CLAIMS NO cardiac hx
--- NOTE | 2021-08-19 05:04 | NUR ---
IV leaking and new line placed in left forarm
--- NOTE | 2021-08-19 05:10 | NUR ---
CALL MADE TO DAUGHTER HAYLIE, INFORMED OF PT TRANSFER TO ICU BED 1 AND PT STATUS, DAUGHTER VERBALIZED UNDERSTANDING.
--- NOTE | 2021-08-19 05:33 | NUR ---
PATIENT CONVERTED BACK TO NSR 94. TERRENCEM TURNED BACK 10
--- NOTE | 2021-08-19 05:41 | NUR ---
JAMES TITRATED DOWN TO .5 CARDIZEM TO 5MG HEART RATE IN 80'S BIPAP SETTING 18/ RATE OF RATE OF 20 AR 100%
--- NOTE | 2021-08-19 05:43 | NUR ---
BLOOD PRESSURE 144/67
--- NOTE | 2021-08-19 07:03 | NUR ---
placed pt on 6l hfnc as per pt c/o nausea. pt alesha well at this time. pricing analyst to monitor. rns in room c pt currently discussing stomach issues.
[2021-08-19 07:08] LABS: BUN 22 mg/dL (8-23); BUN/CREATININE RATIO 66 (12-20 (CALC)); CHLORIDE 82 mmol/l (95-108); CREATININE 0.3 mg/dL (0.5-1.0); GFR > 60 ML/MIN (>=60 (CALC)); GFR FOR AFR.AMER. > 60 ML/MIN (>=60 (CALC)); MAGNESIUM 2.1 mg/dL (1.6-2.3); POTASSIUM 3.5 mmol/l (3.5-5.1); SODIUM 134 mmol/l (137-146)
[2021-08-19 07:15] LABS: ANION GAP 7 (6-22 (CALC))
[2021-08-19 07:16] LABS: CARBON DIOXIDE 49 mmol/l (22-30)
--- NOTE | 2021-08-19 08:47 | NUR ---
Patient complained of nausea, medicated with zofran. Patient now reports "feeling better". Resting comfortably in bed with call light within reach. RN will continue to monitor.
--- NOTE | 2021-08-19 11:47 | NUR ---
PT IN BED. CONTINUING TO EXPERIENCE NAUSEA AND GENERALIZED FATIGUE. SHE REPORTS DECREASED APPETITE AND REFUSED OFFERS TO COMPLETE FFEDING OR SELF CARE TASKS.
--- NOTE | 2021-08-19 13:05 | NUR ---
palced pt on niv as per pt spo2. physiotherapist's assistant then cleared all debris and allowed for better cpox signal, and pt spo2 returned to prior levels. nad. vss. physiotherapist's assistant to monitor.
--- NOTE | 2021-08-19 13:44 | NUR ---
Patient placed back on bipap as 02 levels where dropping. RT called and gave her breathing tx. currently oxygen 89 percent and pt is resting comfortably
--- NOTE | 2021-08-19 13:47 | NUR ---
Patient participated with PT intervention today. Patient carried out log rolling supine to sitting bed mobility ADLs with 1 to 3 attempts with constant verbal and tactile cuing (mod A x 1) to help decrease trick movements and fall risks (patient is breathing better and moving better). Patient also did B LE seated AROM exercises doing hip flexion, hip adduction, hip abduction, hamstring curls, knee extension, and ankle pumps for 10 reps x 2 sets with constant verbal and tactile cuing to help decrease trick movements and fall risks as patient works on discharge from hospital to SNF.
--- NOTE | 2021-08-19 14:50 | NUR ---
no changes at this time. supervisor mechanic boilermaking to monitor. pt c nad vss.
--- NOTE | 2021-08-19 16:19 | NUR ---
Patient denies any needs MICHELLE. BIPAP on and o2 sats are at 99 percent. Call light within reach and RN will continue to monitor.
--- NOTE | 2021-08-19 18:50 | NUR ---
SBAR RECEIVED FROM MIGUEL ÁNGEL BENSON. PATIENT RESTING QUIETLY IN BED. CALL LIGHT WITHIN REACH.
[2021-08-20] VITALS (26 sets, daily range): BP systolic 77–147; BP diastolic 52–73
--- NOTE | 2021-08-20 02:00 | NUR ---
RESTING QUIELTY IN BED EYES CLOSED. CALL LIGHT WITHIN REACH.
--- NOTE | 2021-08-20 06:28 | NUR ---
pt alesha well at this time. nad. vss. no changes in respiratory paramters. crew attendant to monitor. pt recieved on all documented paramters.
--- NOTE | 2021-08-20 07:42 | NUR ---
PATIENT IS A/O X2, SHE DIDNT KNOW WHERE SHE WAS. DENIES PAIN. SKIN IS COOL/DRY. MULTIPLE SKIN BRUISES, SOME TEARS. 3MM PERRLA, BRISK. MOUTH IS DRY AND HAS CRACKED LIPS. REQUESTED WATER, GAVE HER SOME THICKEN WATER. LUNG SOUNDS ARE NORMAL FOR PATIENT. HX OF LARYNGEAL STENOSIS AND STRIDOR. CURRENTLY RUNNING VFIB, 150'S, 160'S. ACTIVE BOWEL SOUNDS. SOFT NON DISTENDED ABDOMEN. NO EDEMA PRESENT AT THIS TIME. DOES HAVE SOFT BOOTS PLACED ON HEELS. LEGS ARE ELEVATED. HEELS ARE GOOD, NO REDDNESS ON HEELS. STRONG PULSES. STRONG AND EQUAL HAND CLINICAL STUDY MANAGER. NO ARM OR LEG DRIFT PRESENT. ON HF NC 6L, O2 SATS 97%. NO SIGNS OR SYMTOMS OF DISTRESS AT THIS TIME. SAFETY MEASURES IN PLACE. CALL LIGHT IN REACH. WILL CONTINUE TO MONITOR PER HOSPITAL'S POLICY.
[2021-08-20 07:58] LABS: HEMATOCRIT 30.5 % (37.0-47.0); HEMOGLOBIN 8.9 g/dl (12.0-16.0); MEAN CELL VOLUME 98.4 fL CALC (80.0-100.0); MEAN CORPUSCULAR HGB 28.7 pG CALC (26.0-32.0); MEAN CORPUSCULAR HGB CONC 29.2 g/dL CAL (32.0-36.0); RED BLOOD COUNT 3.1 mill/uL (4.20-5.60); RED CELL DISTRI WIDTH 13.5 % (11.5-15.5)
[2021-08-20 08:10] LABS: BUN 33 mg/dL (8-23); BUN/CREATININE RATIO 84 (12-20 (CALC)); CHLORIDE 83 mmol/l (95-108); CREATININE 0.4 mg/dL (0.5-1.0); GFR > 60 ML/MIN (>=60 (CALC)); GFR FOR AFR.AMER. > 60 ML/MIN (>=60 (CALC)); POTASSIUM 4.2 mmol/l (3.5-5.1); SODIUM 132 mmol/l (137-146)
[2021-08-20 08:16] LABS: ANION GAP 3 (6-22 (CALC))
[2021-08-20 08:19] LABS: CARBON DIOXIDE 50 mmol/l (22-30)
--- NOTE | 2021-08-20 10:47 | NUR ---
PATIENT'S DAUGHTER CALLED FOR AN UPDATE, CODE PROVIDED, UPDATE WAS GIVEN.
--- NOTE | 2021-08-20 11:00 | NUR ---
PATIENT'S DAUGHTER UPDATED ON VISITING HOURS, SHE STATED THAT SHE WILL COME AROUND ONE.
--- NOTE | 2021-08-20 11:04 | NUR ---
pt doing wqell on hfnc. nad. vss. tree pruner to monitor.
--- NOTE | 2021-08-20 12:00 | NUR ---
PATIENT IS SITTING UP EATING HER LUNCH
--- NOTE | 2021-08-20 13:07 | NUR ---
AEROSOLIZED BRONCHODILATOR THERABY DCd PER PT ELEVATED HR. RT TO MONITOR. NAD.
--- NOTE | 2021-08-20 13:41 | NUR ---
Patient participated with PT intervention today. Patient carried out supine to sitting log rolling bed mobillity ADL transfers with 1 to 3 reps with constant verbal and tactile cuing to help decrease trick movements and fall risks. Patient also did B LE AAROM exercises doing hip flexion, hip adduction, hip abduction, hamstring curls, knee extension, and ankle pumps for 10 reps x 3 sets with constant verbal and tactile cuing to help decrease trick movements and fall risks.
--- NOTE | 2021-08-20 14:00 | NUR ---
PATIENT IS SLEEPING
--- NOTE | 2021-08-20 15:51 | NUR ---
NATALIYA ASLEEP, BUT WOKE EASILY. COMPLETED SELF CARE TASKS IN BED WITH HEADREST UPRIGHT. NATALIYA APPEARED MORE ALERT TODAY, ENGAGED IN CONVERSATION AND PARTICIPATED IN SELF CARE TASKS WITH NORRIS PEPPER
--- NOTE | 2021-08-20 16:00 | NUR ---
PATIENT HAS HER SON AT BEDSIDE.
--- NOTE | 2021-08-20 19:35 | NUR ---
PT AWAKE LOC TO SELF AND YEAR, SHE RESPONDS APPROPRIATELY AND IS ABLE TO ANSWER QUESTIONS TO MEET NEEDS. ASSESSMENT COMPLETED AT THIS TIME. ASSISTED PT WITH PO FLUIDS, SHE ASKED FOR ORANGE JUICE/PROVIDED THICKENED AND HOB UPRIGHT IN HIGH FOWLERS. PT C/O BEING COLD, WARMED BLANKET PROVIDED FOR COMFORT.
--- NOTE | 2021-08-20 20:10 | NUR ---
PT REPORTS NOT HAVING STOOL OUTPUT FOR "DAYS" DAY NURSE REPORTED THAT LAST KNOWN BM WAS REPORTEDLY ON 3RD. PT MEDICATED WITH MILK OF MAG.
--- NOTE | 2021-08-20 20:45 | NUR ---
RESP AT BEDSIDE, PT REFUSES TO BE PLACED ON BI-PAP AT THIS TIME, BUT AGREED TO RA-MASK.
--- NOTE | 2021-08-20 20:55 | NUR ---
PT O2 SAT 83%, UPON ENTERING THE ROOM, PT HAS PULLED HER MASK OFF. I REINFORCED THE NEED FOR MASK AND SHE AGREED TO KEEP THE MASK ON.
--- NOTE | 2021-08-20 21:05 | NUR ---
UPON ENTERING ROOM, PT MASK WAS PULLED DOWN OFF OF HER FACE, 02 SATS WERE 87% SHE REPLIED "IT WON'T MATTER FOR A MINUTE." I OFFERED HER THE NC, BUT SHE STATED "OH NO." SO SHE AGREED TO TRY AND KEEP THE MASK IN PLACE, ME EXPLAINING AGAIN HER OXYGEN SAT LEVELS DROP TO LOW 80'S WHEN LEFT OFF AND THAT IT IS DIFFICULT AT TIMES TO RECOVER O2 LEVELS FROM THAT.
--- NOTE | 2021-08-20 21:26 | NUR ---
PT SLEEPING AT THIS TIME. O2 SAT 93% SHE HAS RA MASK ON AT THIS TIME. NO S/O DISTRESS NOTED. CARDIZEM DRIP RUNNING AT 15ML/HR. HR 70'S STABLE AT THIS TIME.
--- NOTE | 2021-08-20 22:08 | NUR ---
HR SUSTAINED 68-72. CARDIZEM DRIP TITRATED DOWN TO 10MG/HR, V/S TO BE ASSESSED Q15MIN FOR THE FIRST HOUR.
--- NOTE | 2021-08-20 22:33 | NUR ---
PT APPEARS TO BE TOLERATING CARDIZEM DRIP CHANGE, RUNNING @10MG/HR. HR 72 AT THIS TIME. RA-MASK IN PLACE, 02 SATS 94%
--- NOTE | 2021-08-20 23:00 | NUR ---
V/S STABLE, HR SUSTAINED SR72. PT IS SLEEPING, NO S/O DISTRESS, RA-MASK IS IN PLACE.
--- NOTE | 2021-08-20 23:45 | NUR ---
PT CHANGED OF INCONTINENT URINE, MODERATE AMOUNT OF YELLOW URINE. O2 SAT DROPPED TO 84% WHEN PLACED ON LEFT SIDE. UPON REPOSITIONING WITH PILLOWS OXYGEN SAT RECOVERED TO 93% ON THE RA-MASK. SKIN TEAR TO BACK OF LEFT CALF HAD STERI-STRIPS FALLING OFF, REPLACED STERI-STRIPS AND WRAPPED WITH KURLEX WRAPPING FOR PROTECTION AND DRAINAGE. PT TOLERATED WELL. 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 I DID ENCOURAGED HER TO SELF REPOSITIION SHE SEEMED ABLE TO ASSIST IN TURNING. EDUCTAED HER IN PRESSURE CARE.
[2021-08-21] VITALS (37 sets, daily range): BP systolic 109–172; BP diastolic 62–84
--- NOTE | 2021-08-21 00:17 | NUR ---
PT IN AFIB WITH RATE 135-145. CARDIZEM DRIP TITRATED BACK TO 15MG/HR. OXYGEN SAT DOWN SUSTAINED 85% ON RA-MASK, RESP IN WITH PT AND SHE HAS BEEN PLACED BACK ON BI-PAP AT THIS TIME NOW RESPONDING WITH OXYGEN SAT AT 96% SUSTAINED ON BI-PAP.
--- NOTE | 2021-08-21 01:03 | NUR ---
PT WAS NOT TOLERATING BI-PAP, PULLING MASK OFF AND ASKING FOR IT TO BE REMOVED. RESP NOTIFIED, PT PLACED ON NON-REBREATHER MASK FOR COMFORT, OXYGEN SAT ARE SUSTAINED 96% AT THIS TIME. WE DID EDUCATE HER NOT TO REMOVE MASK, SHE AGREED VERBALLY.
--- NOTE | 2021-08-21 01:20 | NUR ---
PT CALLED US TO BEDSIDE BY YELLING OUT, UPON ENTERING THE ROOM, SHE POINTED TO HER NON-REBREATHER MASK STATING "I'M DONE." WE REMINDED HER THAT SHE NEEDS THAT ON TO KEEP HER OXYGEN LEVELS IN HER BLOOD UP. SHE APPEARED TO CALM AND LEFT MASK IN PLACE.
--- NOTE | 2021-08-21 01:31 | NUR ---
OBSERVED NOTE TO NURSE UPON CHART CHECKING, NOTE ASKING FOR "PUREED DIET PER PREVIOUS VISIT" ORDERS PLACED FOR DIETARY. NECTAR THICKENED LIQUIDS MAINTAINED ALSO.
--- NOTE | 2021-08-21 01:43 | NUR ---
PT CONVERTED BACK INTO AFIB 130'S CARDIZEM DRIP @15MG/HR AT THIS TIME.
--- NOTE | 2021-08-21 02:00 | NUR ---
PT USED CALL LIGHT. UPON ENTERING THE ROOM, SHE REPORTS "I'M DONE, TAKE THIS OFF." POINTING TO OXYGEN NON-REBREATHER MASK. SHE IS PULLING AT IT WANTING IT OFF. SHE WAS VERY AGITATED SOUNDING. I REMINDED HER THAT SHE HAS PNEUMONIA AND NEEDS THIS 02 SUPPLEMENTATION. SHE SAID "I AM DONE." WE REMOVED THE MASK AND PLACED HER ON NC HIGH FLOW 15L AND OXYGEN SAT 93% PT APPEARS TO BE TOLERATING THIS BETTER AT THIS TIME.
--- NOTE | 2021-08-21 04:01 | NUR ---
PT PLACED ON BI-PAP. PT WAS AGITATED AND C/O NC, SHE WOULD NOT KEEP IT IN NARES OR MOUTH FOR MOUTH BREATHING, O2 SAT 70'S. RESP CALLED AND PLACED HER BACK ON BI-PAP AT THIS TIME. OXYGEN SAT RECOVERED TO 88% AT THIS TIME.
--- NOTE | 2021-08-21 04:36 | NUR ---
PT YELLED OUT, UPON ENTERING THE ROOM, BI-PAP WAS ALARMING, PT WAS ATTEMPTING TO REMOVE BI-PAP, SHE WAS YELLING "TAKE IT OFF, NO MORE" PT AGREED TO PLACEMENT OF NC HIGH FLOW 15L, MAINTAINING 02SAT 93% AT THIS TIME.
--- NOTE | 2021-08-21 05:29 | NUR ---
PT C/O NC STATING IT ISN'T WORKING, O2 SAT 92% SHE PULLED IT OFF AND IS CALLING OUT FOR HELP. NON-REBREATHER MASK PLACED ON HIGH FLOW 15L. 90% O2SAT ON NON-REBREATHER.
--- NOTE | 2021-08-21 05:50 | NUR ---
RESP IN WITH PT, SHE AGREED TO BE PLACED BACK ON BI-PAP.
--- NOTE | 2021-08-21 06:05 | NUR ---
PT CONVERTED TO NSR 70'S, SHE PULLED BIPAP OFF, BIPAP REPLACED AT THIS TIME.
--- NOTE | 2021-08-21 07:18 | NUR ---
BSSR RECEIVED FROM MIGUEL ÁNGEL VIEYRA. PT AWAKE AND ALERT RESTING IN HIGH FOWLERS. PT SPO2 IS 95% ON 15L HI-FLOW HUMIDIFIED. RT ALSO AT BS TO ADJUST OXYGEN TO 4L. PT SPO2 REMAINS BETWEEN 88-94%. PT STATES SHE HAS ABDOMINAL DISCOMFORT. EDUCATED OF PREVIOUS MILK OF MAGNESIA ADMINISTRATION. PT ADMITS TO NOT HAVING A BM "IN A LONG TIME" DENIES ANY FURTHER PAIN, ASSESSMENT PREFORMED, CALL LIGHT WITHIN REACH. INSTRUCTED PT TO CALL FOR ASSISTANCE, VERBALIZES UNDERSTANDING.
--- NOTE | 2021-08-21 09:21 | NUR ---
PT CONVERTED ON MONITOR TO NSR FROM AFIB. FAMILY ON PHONE AT THE SAME TIME AND AWARE. GIVEN PHONE NUMBER TO PHYSICIAN TO GIVE UPDATE OF PLAN OF CARE TO FAMILY. WILL ATTEMPT TO TIRATE CARDIZEM IF PT CONTINUES TO REMAIN IN NSR.
--- NOTE | 2021-08-21 10:32 | NUR ---
PT HR IS 60 BPM. CARDIZEM GTT TITRATED FROM 15MG TO 10MG/HR. PT BP IS 135/67.
--- NOTE | 2021-08-21 11:38 | NUR ---
PT CARDISEM TITRATED TO 5MG/HR FROM 10MG/HR AT THIS TIME. PT HR IS 60BPM. BP IS 139/70. PT DOES NOT APPEAR TO BE IN ANYTYPE OF DISTRESS. NOT INTERESTED IN EATING AT THIS TIME. CALL LIGHT WITHIN REACH. INSTRUCTED PT TO CALL FOR THE ASSISTANCE, WILL CONTINUE TO MONITOR.
--- NOTE | 2021-08-21 11:57 | NUR ---
CARDIZEM GTT TURN OFF AT THIS TIME. HR IS BETWEEN 49-62. PT DOES NOT DISPLAY ANY S/S OF BRADYCARDIA. WILL CONTINUE TO MONITOR.
--- NOTE | 2021-08-21 12:19 | NUR ---
PT C NAD. VSS. BLAZE NEB THERAPY WELL AT THIS TIME. ROAD MENDER TO MONITOR.
--- NOTE | 2021-08-21 13:00 | NUR ---
SON AT BS TO VISIT FAMILY PER VISITATION GUIDELINES. PT AWAKE ALERT AND MILDLY CONFUSED. GIVEN UPDATE TO FAMILY OF PLAN OF CARE, STATES UNDERSTANDING.
--- NOTE | 2021-08-21 16:00 | NUR ---
PT REMAINS IN NSR, VSS. PT DENIES PAIN, SOB OR DISCOMFORT. EAGER FOR DINNER TRAY. STATES "IM HUNGRY" BED ALARM ON, CALL LIGHT WITHIN REACH. WILL CONTINUE TO MONITOR.
--- NOTE | 2021-08-21 19:00 | NUR ---
BEDSIDE REPORT RECEIVED FROM DAY NURSE. PT APPEARS CALM AND IN STABLE CONDITION. NC HIGH FLOW IN PLACE @10L. O2 SAT 100% AT THIS TIME. PT REPORTS FEELING "OKAY".
--- NOTE | 2021-08-21 20:00 | NUR ---
pt medictaed as orders provide. Pt appears calm, but reports that she hasn't slept at all this day and she was awake all the previous night. Order received for sleep aide.
--- NOTE | 2021-08-21 21:25 | NUR ---
PT WAS MOVED FROM BED 1 TO BED 7 IN ICU. PICTURES TAKEN OF WOUNDS FOR CHARTING AND DRESSING CHANGED TO LLE WOUND, MODERATE AMOUNT OF SEROUS DRAINAGE TO PREVIOUS DRESSING PLACED EARLIER THIS DAY. PT CLEANED OF INCONTIENT URINE AND NEW BRIEF PLACED. PT CONFUSED TO CIRCUMSTANCE AND LOCATION. SHE IS TALKING ABOUT HAVING TO MOVE AND WHERE ARE HER CLOTHES GOING TO BE, ETC. ATTEMPTS WERE MADE TO ORIENT PT AT THIS TIME.
--- NOTE | 2021-08-21 22:00 | NUR ---
pt 02 sat dropped to 74. She is asleep with NC high Flow in place. NC moved to mouth and o2 sats rebounded to 94% on 12L High Flow
[2021-08-22] VITALS (14 sets, daily range): BP systolic 117–172; BP diastolic 57–89
--- NOTE | 2021-08-22 00:38 | NUR ---
PT MEDICATED ORDERS PROVIDE WITH IV ANTIBIOTIC THERAPY. O2 SAT 94% ON 40%RA MASK
--- NOTE | 2021-08-22 02:10 | NUR ---
PT APPEARS TO BE SLEEPING, NO S/O DISTRESS NOTED. RESP EVEN AND NON-LABORED. O2 SAT 99%, HR [id number]. 50% VENTI-MASK ON PT.
--- NOTE | 2021-08-22 04:08 | NUR ---
PT SLEEPING, MONITOR ASSESSED SHOWING O2 SATS 98% ON 50% VENTI-MASK. PT APPEARS TO BE SLEEPING, RESP EVEN AND NON-LABORED. NO S/O DISTRESS NOTED.
--- NOTE | 2021-08-22 04:30 | NUR ---
MONITOR SOUNDED ALARM OF O2 SATS DROPPING. UPON ENTERING THE ROOM ICU STAFF NURSE REPORTS HAVING FOUND THE PT WITH AGONAL BREATHING, OXYGEN SAT READING 25% AND HR 55. PT WAS PULLING ON VENTI-MASK. STAFF NURSE QUICKLY PLACED PT BACK ON BI-PAP. UPON MY ENTERING THE ROOM, STAFF NURSE AND CASH MANAGEMENT COORDINATOR WERE AT BEDSIDE PT 02 SATS WERE OBSERVED TO BE 60% AND PT WAS NOT RESPONSIVE. EYES OPEN. PT QUICKLY RECOVERED HER O2 SATS TO 90% ON BIPAP AND HR REBOUNDED TO 65-70. BP NOW ASSESSED TO BE 154/69. PT IS STILL NOT RESPONDING TO US VERBALLY. SHE IS MOVING HER ARMS TRYING TO PULL ON BLANKETS, EYES ARE OPEN, PUPILS ARE PEARLA, BUT SHE WILL NOT VERBALLY RESPOND AT THIS TIME.
--- NOTE | 2021-08-22 05:48 | NUR ---
V/S ARE STABLE, BUT PT DOES NOT TRY TO RESPOND TO MY VOICE VERBALLY, SHE DOES START MOVING HER ARMS WHEN TALKED TO.
--- NOTE | 2021-08-22 07:02 | NUR ---
BSSR FROM MIGUEL ÁNGEL VIEYRA. PT RESTING SEMI-FOWLERS. AWAKES TO VERBAL AND LIGHT TOUCH. PT IS DROWSY, FALLS ASLEEP EASILY. REMAINS ON BIPAP. VSS, SPO2 IS 97%. SAFETY REVIEWED, CALL LIGHT WITHIN REACH. WILL CONTINUE TO MONITOR CLOSELY.
[2021-08-22 08:30] LABS: HEMATOCRIT 29.5 % (37.0-47.0); HEMOGLOBIN 8.6 g/dl (12.0-16.0); IMMATURE GRANULOCYTES 0.3 % (0.0-5.0); MEAN CELL VOLUME 98.3 fL CALC (80.0-100.0); MEAN CORPUSCULAR HGB 28.7 pG CALC (26.0-32.0); MEAN CORPUSCULAR HGB CONC 29.2 g/dL CAL (32.0-36.0); NEUT# 11.33 thou/uL (2.00-7.15); RED CELL DISTRI WIDTH 13.3 % (11.5-15.5)
[2021-08-22 08:46] LABS: BUN 19 mg/dL (8-23); BUN/CREATININE RATIO 42 (12-20 (CALC)); CHLORIDE 88 mmol/l (95-108); CREATININE 0.5 mg/dL (0.5-1.0); GFR > 60 ML/MIN (>=60 (CALC)); GFR FOR AFR.AMER. > 60 ML/MIN (>=60 (CALC)); POTASSIUM 3.9 mmol/l (3.5-5.1); SODIUM 135 mmol/l (137-146)
[2021-08-22 08:53] LABS: ANION GAP 1 (6-22 (CALC))
[2021-08-22 08:54] LABS: CARBON DIOXIDE 50 mmol/l (22-30)
--- NOTE | 2021-08-22 09:30 | NUR ---
DAUGHTER ON THE PHONE REQUESTING HOSPICE BE CONSULTED. WILL NOTIFY MD OF FAMILY AND PT'S REQUEST.
--- NOTE | 2021-08-22 12:00 | NUR ---
PT RESTING ON BIPAP. SKIN IS CDI. VSS, NO DISTRESS NOTED. SAFETY REVIEWED, CALL LIGHT WITHIN REACH. WILL CONTINUE TO MONITOR.
--- NOTE | 2021-08-22 12:21 | NUR ---
FIO2 DECREASED TO 60%
--- NOTE | 2021-08-22 13:20 | NUR ---
DISCHARGE DISCUSSED WITH MD FOR HOSPICE, GRANTED. WILL INITIATE PROCESS
--- NOTE | 2021-08-22 15:06 | NUR ---
BIPAP STANDBY. PLACED ON 15L HFNC. FAMILY AT BEDSIDE.
--- NOTE | 2021-08-22 16:00 | NUR ---
HOSPICE BACTERIOLOGY RESEARCH ASSISTANT ON THE UNIT AT THIS TIME. FAMILY MEMBERS IN TO VISIT PT. QUESTIONS AND CONCERNS ANSWERED, DISCHARGE COMPLETED. WILL AWAIT TIME FOR TRANSFER TO HOSPICE HOUSE
--- NOTE | 2021-08-22 17:58 | NUR ---
[facility] PRESENT AND TRANSPORTING PATIENT AT THIS TIME. FAMILY AWARE OF DEPARTURE.
== END 2021-08-22 18:00 | disposition hospice, inpatient (51) | DRG 178 ==
LOC: ED 17:09 → ED-I 19:15 → ED 19:34 → MS2 19:35 → ICU 08-19 03:39
PROVIDERS: Family Medicine; Internal Medicine; Nurse Practitioner; ADMIT Hospitalist; ATTEND Internal Medicine
PROC: 5A09357 Assistance with Respiratory Ventilation, Less than 24 Consecutive Hours, Continuous Positive Airway Pressure (ICD-10-PCS; principal; 2021-08-19)
DX: J69.0 Pneumonitis due to inhalation of food and vomit (principal); J96.12 Chronic respiratory failure with hypercapnia; J96.11 Chronic respiratory failure with hypoxia; I42.9 Cardiomyopathy, unspecified; Z68.1 Body mass index [BMI] 19.9 or less, adult; I48.0 Paroxysmal atrial fibrillation; I10 Essential (primary) hypertension; F03.90 Unspecified dementia, unspecified severity, without behavioral disturbance, psychotic disturbance, mood disturbance, and anxiety; I25.10 Atherosclerotic heart disease of native coronary artery without angina pectoris; J43.9 Emphysema, unspecified; E03.9 Hypothyroidism, unspecified; J38.00 Paralysis of vocal cords and larynx, unspecified; K21.9 Gastro-esophageal reflux disease without esophagitis; M19.90 Unspecified osteoarthritis, unspecified site; J38.6 Stenosis of larynx; D86.9 Sarcoidosis, unspecified; R63.6 Underweight; Z99.81 Dependence on supplemental oxygen; Z20.822 Contact with and (suspected) exposure to COVID-19; Z88.8 Allergy status to other drugs, medicaments and biological substances
CPT/HCPCS: G0378; J1644; J1650; J3475; Q3014; Q9967